=== PATIENT | female | born 1955 | race Caucasian/White ===

== ENCOUNTER 2016-09-30 23:47 | Inpatient (IN) | payer MEDICARE, OTHER ==
[~2016-09-30] VITALS: Ht 160 cm; Wt 79.2 kg
[2016-10-01] VITALS (21 sets, daily range): BP systolic 107–145; BP diastolic 67–71; PULSE 85–112; RESP 20–22; TEMP 98; Ht 160 cm; Wt 79.2 kg
[2016-10-01] MEDS ORDERED: ALBUTEROL 0.5% (NEB) 2.5 MG/0.5 ML AMP INH STA (00:04)
[2016-10-01] MEDS ORDERED: IPRATROPIUM (NEB) 0.5 MG/2.5 ML AMP INH STA (00:04)
[2016-10-01] MEDS ORDERED: DEXAMETHASONE 10 MG/ML 1 ML INJ IV STA (00:04)
[2016-10-01 00:45] LABS: AADO2 Arterial 157.6 mmHg (7.0-24.0); Allen Test ACCEPTAB; Arterial Base Excess 2.7 mmol/L (-3.0-3); Arterial COHb 0.8 % (0.0-3.0); Arterial Fraction of Oxyhgb 95.8 % (93.0-99.0); Arterial HCO3 32.9 mmol/L (22.0-26.0); Arterial MetHb 0.4 % (0.0-1.5); MODE MASK - SIMPLE
[2016-10-01 00:52] LABS: BASOPHILS % 0.3 % (0.0-2.0); EOSINOPHILS % 0.2 % (0.0-7.0); HEMATOCRIT 41.3 % (37.0-47.0); HEMOGLOBIN 13.5 g/dl (12.0-16.0); LYMPHOCYTES % 11.6 % (15.0-51.0); MEAN CORPUSCULAR HEMOGLOBIN 28.6 pg (29.0-33.0); MEAN CORPUSCULAR HGB CONC 32.8 g/dl (32.0-37.0); MEAN CORPUSCULAR VOLUME 87.2 fl (82.0-101.0); MEAN PLATELET VOLUME 7.2 fl (7.4-10.4); MONOCYTE # 0.7 10^3/ul (0.3-0.9); MONOCYTES % 8.2 % (0.0-11.0); NEUTROPHILS % 79.7 % (39.0-77.0); PLATELET COUNT 387 10^3/UL (140-440); RED BLOOD COUNT 4.73 10^6/ul (4.20-5.40); RED CELL DISTRIBUTION WIDTH 15.9 % (11.5-14.5); UNCORRECTED WBC 8.8 10^3/ul (4.8-10.8); WHITE BLOOD COUNT 8.8 10^3/ul (4.8-10.8)
--- NOTE | 2016-10-01 00:52 | RADRPT ---
PROCEDURE: XR Chest. CLINICAL INDICATION: Possible sepsis. TECHNIQUE: Single frontal view of the chest was obtained COMPARISON: None FINDINGS: Cardiomegaly with pulmonary valve ingestion of bilateral patchy air space disease, left greater than right. In setting of sepsis findings may represent left lung base pneumonia. There is no pleural effusion or pneumothorax. IMPRESSION: Left lung base pneumonia with mild superimposed failure. RPTAT: [facility] Physician Kvng Date Time Electronically viewed and signed by Neli Santiago Physician on 10/01/2016 00:51 RS/
[2016-10-01 00:53] LABS: CONDITION 1; LH ANALYZER COMMENTS 1
[2016-10-01 00:57] LABS: ALBUMIN 3.8 g/dl (3.3-4.9); CHLORIDE 76 mmol/L (97-110)
[2016-10-01 00:58] LABS: PARTIAL THROMBOPLASTIN TIME 24.8 Sec (25.0-35.0); POTASSIUM 3.9 mmol/L (3.5-5.1); SODIUM 121 mmol/L (135-144)
[2016-10-01 01:00] LABS: ALBUMIN/GLOBULIN RATIO 1.35; ALKALINE PHOSPHATASE 178 IU/L (42-121); ANION GAP 12 (8-16); ASPARTATE AMINO TRANSFERASE 24 IU/L (15-46); BILIRUBIN,INDIRECT 0.3 mg/dl (0-1.1); BILIRUBIN,TOTAL 0.3 mg/dl (0.2-1.3); CARBON DIOXIDE 37 mmol/L (21-31); CREATININE 0.42 mg/dl (0.44-1.00); TOTAL PROTEIN 6.6 g/dl (6.1-8.1)
[2016-10-01 01:01] LABS: ALANINE AMINOTRANSFERASE 28 IU/L (13-69); BLOOD UREA NITROGEN 13 mg/dl (7-20); CALCIUM 8.7 mg/dl (8.4-10.2); GLUCOSE 111 mg/dl (70-220)
[2016-10-01 01:06] LABS: INR 0.92; PROTIME 12.4 Sec (12.2-14.2)
[2016-10-01 01:22] LABS: TROPONIN-I < 0.012 ng/ml (0.00-0.12)
[2016-10-01 01:32] LABS: ADD UMIC NO; URINE BILIRUBIN (Dip) NEGATIVE (NEGATIVE); URINE BLOOD (Dip) NEGATIVE (NEGATIVE); URINE COLOR LT. YELLOW (YELLOW); URINE GLUCOSE (Dip) NEGATIVE (NEGATIVE); URINE KETONES (Dip) NEGATIVE (NEGATIVE); URINE LEUKOCYTE ESTERASE (Dip) NEGATIVE (NEGATIVE); URINE NITRITE (Dip) NEGATIVE (NEGATIVE); URINE TOTAL PROTEIN (Dip) NEGATIVE (NEGATIVE); URINE UROBILINOGEN (Dip) 0.2 E.U./dL (0.1-1.0)
--- NOTE | 2016-10-01 02:15 | ERA ---
ER Documentation Chief Complaint Date/Time DATE: 10/01/16 TIME: 02:14 Chief Complaint FLU LIKE S/S X 3 DAYS; FROM SNF; RA O2 AT TRIAGE 56 HPI Chest pain. No other current complaints. This is a very pleasant 61-year-old female comes in with complaints of shortness of breath. Lives in assisted living. Patient has history of COPD. Denies any nausea vomiting fevers chills. Denies any chest pain. ROS All systems reviewed and are negative except as per history of present illness. PMhx/Soc History of Surgery: Yes (appendectomy) Anesthesia Reaction: No Hx Neurological Disorder: Yes (mentally challenged?) Hx Respiratory Disorders: No Hx Cardiac Disorders: No Hx Miscellaneous Medical Probl: No Hx Alcohol Use: No Hx Substance Use: No Hx Tobacco Use: Yes Smoking Status: Former smoker Physical Exam Vitals Vital Signs Date Time Temp Pulse Resp B/P Pulse Ox O2 Delivery O2 Flow Rate FiO2 10/01/16 01:29 98.1 92 24 107/65 94 Mask 10.0 10/01/16 01:12 92 10.0 10/01/16 01:05 91 15.0 50 10/01/16 00:29 Nasal Cannula 5 10/01/16 00:24 92 8.0 10/01/16 00:21 96 22 93 Aerosol 8.0 Aerosol Mask 10/01/16 00:20 74 4.0 10/01/16 00:06 Nasal Cannula 4.0 10/01/16 00:01 98.0 104 24 113/67 54 Physical Exam Const: [] Head: Atraumatic Eyes: Normal Conjunctiva ENT: Normal External Ears, Nose and Mouth. Neck: Full range of motion..~ No meningismus. Resp: Clear to auscultation bilaterally Cardio: Regular rate and rhythm, no murmurs Abd: Soft, non tender, non distended. Normal bowel sounds Skin: No petechiae or rashes Back: No midline or flank tenderness Ext: No cyanosis, or edema Neur: Awake and alert Psych: Normal Mood and Affect Result Diagram: 10/01/16 0024 10/01/16 0024 Results 24 hrs Laboratory Tests Test 10/01/16 00:04 10/01/16 00:24 10/01/16 01:00 Arterial Blood HCO3 32.9mmol/L Arterial Blood Base Excess 2.7mmol/L Arterial Blood Oxygen Saturation 97.0mmHG Chaitanya Test ACCEPTAB Arterial Blood Gas Puncture Site Right Radial Arterial Blood Carboxyhemoglobin 0.8% Arterial Blood Date Drawn 10/01/2016 12:40:37 AM Arterial Blood Methemoglobin 0.4% Arterial Blood pCO2 (Temp correct) 80.1mmhg Arterial Blood pH (Temp corrected) 7.231 Arterial Blood pO2 (Temp corrected) 108.8mmHG Blood Gas A-a O2 Differential 157.6mmHg Blood Gas Critical Value Read Back Zuri ANTOINE Blood Gas Modality MASK - SIMPLE Blood Gas Notified Time 10/01/2016 12:45:20 AM Blood Gas Notified Whom BR Blood Gas Specimen Source Blood arterial Blood Gas Temperature 37.0C FiO2 50.0% Oxyhemoglobin Percent 95.8% Total Hemoglobin 14.0g/dl Activated Partial Thromboplast Time 24.8Sec Alanine Aminotransferase (ALT/SGPT) 28IU/L Albumin 3.8g/dl Albumin/Globulin Ratio 1.35 Alkaline Phosphatase 178IU/L Anion Gap 12 Aspartate Amino Transf (AST/SGOT) 24IU/L Basophils # 0.010^3/ul Basophils % 0.3% Blood Morphology Comment Blood Urea Nitrogen 13mg/dl Calcium Level 8.7mg/dl Carbon Dioxide Level 37mmol/L Chloride Level 76mmol/L Creatinine 0.42mg/dl Direct Bilirubin 0.00mg/dl Eosinophils # 0.010^3/ul Eosinophils % 0.2% Globulin 2.80g/dl Glucose Level 111mg/dl Hematocrit 41.3% Hemoglobin 13.5g/dl INR International Normalized Ratio 0.92 Indirect Bilirubin 0.3mg/dl Lactic Acid Level 1.3mmol/L Lymphocytes # 1.010^3/ul Lymphocytes % 11.6% Mean Corpuscular Hemoglobin 28.6pg Mean Corpuscular Hemoglobin Concent 32.8g/dl Mean Corpuscular Volume 87.2fl Mean Platelet Volume 7.2fl Monocytes # 0.710^3/ul Monocytes % 8.2% Neutrophils # 7.010^3/ul Neutrophils % 79.7% Nucleated Red Blood Cells # 0.010^3/ul Nucleated Red Blood Cells % 0.0/100WBC Platelet Count 66740^3/UL Potassium Level 3.9mmol/L Prothrombin Time 12.4Sec Prothrombin Time Ratio 1.0 Red Blood Count 4.7310^6/ul Red Cell Distribution Width 15.9% Sodium Level 121mmol/L Total Bilirubin 0.3mg/dl Total Protein 6.6g/dl Troponin I < 0.012ng/ml White Blood Count 8.810^3/ul Urine Bilirubin NEGATIVE Urine Clarity CLEAR Urine Color LT. YELLOW Urine Glucose NEGATIVE% Urine Hemoglobin NEGATIVE Urine Ketones NEGATIVE Urine Leukocyte Esterase NEGATIVE Urine Nitrite NEGATIVE Urine Specific [place] 1.025 Urine Total Protein NEGATIVE Urine Urobilinogen 0.2 E.U./dL Urine pH 6.0 Current Medications Medications (Trade) Dose Ordered Sig/León Route PRN Reason Start Time Stop Time Status Last Admin Dose Admin Albuterol (Proventil 0.5% (Neb)) 15 mg ONCE STAT INH 10/01/16 00:04 10/01/16 00:07 DC 10/01/16 00:17 Ipratropium [place] (Atrovent 0.02% (Neb)) 1 mg ONCE STAT INH 10/01/16 00:04 10/01/16 00:07 DC 10/01/16 00:17 Dexamethasone (Decadron) 10 mg ONCE STAT IV 10/01/16 00:04 10/01/16 00:07 DC 10/01/16 00:34 Procedures/MDM EKG: Rate/Rhythm: Normal Sinus Rhythm QRS, ST, T-waves: No changes consistent w/ acute ischemia Impression: No evidence of ischemia or arrhythmia Chest X-ray 1V Interpreted by me: Soft Tissue: No acute abnormalities Bones: No acute abnormalities Mediastinum/Cardiac Silhouette/Lungs: No acute abnormalities Patient's respiratory symptoms have not responded to normal outpatient therapy and will require inpatient workup, monitoring, and treatment. Accepting Care Team: Current data and ongoing care discussed. Time: 1 AM Primary Provider: Hospitalist Consulting: [XOXOXO] Outstanding Data: none Critical Care: Time: 45 minutes Treatments/Evaluations: Close monitoring and treatment of unstable vital signs, cardiorespiratory, and neurologic status, while maintaining tight balance of fluid, respiratory, and cardiac interventions. Departure Diagnosis: Primary Impression: Shortness of breath Additional Impression: COPD (chronic obstructive pulmonary disease) Condition: Critical SYED ANTOINE Oct 01, 2016 02:15
[2016-10-01] MEDS ORDERED: ACETAMINOPHEN 325 MG TAB PO PRN (03:30)
[2016-10-01] MEDS ORDERED: SOD CHLORIDE 0.9% 1,000 ML IV SCH (03:30)
[2016-10-01] MEDS ORDERED: ONDANSETRON 4 MG INJ IV PRN (03:30)
[2016-10-01] MEDS ORDERED: LEVOFLOXACIN 500MG/D5W (PMX) 100 ML IVPB SCH ×2 (03:30→04:00)
[2016-10-01] MEDS ORDERED: LEVALBUTEROL (NEB) 0.63 MG/3 ML AMP ONE (03:37)
[2016-10-01] MEDS: IPRATROPIUM (NEB) 0.5 MG/2.5 ML AMP HHN SCH ×6 (04:00→19:40)
[2016-10-01] MEDS: LEVALBUTEROL (NEB) 0.63 MG/3 ML AMP HHN SCH ×6 (04:00→19:39)
[2016-10-01] MEDS ORDERED: METO-448 PO (04:24)
[2016-10-01] MEDS ORDERED: AMLO-218 PO (04:24)
[2016-10-01] MEDS ORDERED: HAL120L PO (04:37)
[2016-10-01] MEDS ORDERED: ERGO500014 PO (04:37)
[2016-10-01] MEDS ORDERED: DOCU-159 PO (04:37)
[2016-10-01] MEDS ORDERED: ADV25050 INHALATION (04:37)
[2016-10-01] MEDS ORDERED: ALBU8.5H3 INH (04:37)
[2016-10-01] MEDS ORDERED: RES15 PO (04:37)
[2016-10-01] MEDS ORDERED: HALO20TA7 PO (04:37)
[2016-10-01] MEDS ORDERED: CLON0.5T4 PO (04:37)
[2016-10-01] MEDS ORDERED: LUBI24CA7 PO (04:37)
--- NOTE | 2016-10-01 08:06 | HP ---
DATE OF ADMISSION: 10/01/2016 TIME SEEN: 4 a.m. CHIEF COMPLAINT: Shortness of breath and hypoxia. HISTORY OF PRESENT ILLNESS: The patient is a 61-year-old mentally challenged female with a history of hypertension and COPD who was sent from an assisted living facility for shortness of breath and h ypoxia. The patient denies chest pain, fever, chills, nausea, vomiting. When he presented to the ER, he was found to be severely hypoxic with oxygen saturation of 54%. His blood pressure was 113/67, heart rate 104, respiratory rate 24, and temperature is 98. Basic labs show a sodium of 121, chloride 76, bicarbonate 37, alkaline phosphatase 178. Otherwise, CBC and CMP are within normal limits. Chest x-ray shows cardiomegaly with pulmonary vascular congestion. Also, bilateral patchy airspace disease, left greater than right, most likely representing left lung base pneumonia. The patient wa s given 10 mg of IV dexamethasone and breathing treatments with albuterol and with Atrovent. REVIEW OF SYSTEMS: A 12-point review of systems was performed, negative except as mentioned in the HPI. PAST MEDICAL HISTORY: As per HPI. PAST SURGICAL HISTORY: Appendectomy. SOCIAL HISTORY: No history of tobacco, alcohol, or illicit drug use. ALLERGIES: NO KNOWN DRUG ALLERGIES. HOME MEDICATIONS: 1. Albuterol. 2. Norvasc. 3. Lopressor. 4. Clonazepam. 5. Haldol. 6. Temazepam. 7. Advair. 8. Colace. 9. . 10. Vitamin D2. PHYSICAL EXAMINATION: VITAL SIGNS: Blood pressure 145/68, heart rate 88, respiratory rate 22, temperature 98.6, oxygen sa turation 94% on 65% FIO2. GENERAL: The patient in some respiratory distress, not able to speak in full sentences. HEENT: No obvious head deformity. His pupils are reactive to light. CARDIOVASCULAR: Tachycardic with regular rhythm. LUNGS: Diminished breath sounds at the bases, left worse than right. ABDOMEN: Soft, nontender, nondistended. Positive bowel sounds. EXTREMITIES: No edema. NEUROLOGIC: No focal deficits. LABORATORY: Pertinent positives results as mentioned in the HPI. IMPRESSION: 1. Chronic obstructive pulmonary disease exacerbation with underlying pneumonia. 2. Pneumonia. 3. Shortness of breath and hypoxia secondary to #1 and #2. 4. Hyponatremia and hypochloremia. 5. Hypertension. 6. Probable congestive heart failure, given chest x-ray finding of pulmonary vascular congestion. PLAN: Obtain an ABG. He will be treated with oxygen, bronchodilators, steroids, and antibiotics. Will initiate positive pressure ventilation as needed. We will place a pulmonary consult given the severe hypoxia on initial presentation. Will also obtain a 2-D echo. We will correct his electroly cande, namely his sodium in this case. He will be placed on antihypertensive with adjustment as otilia tena. We will also continue his home medication including his clonazepam and Haldol and will adjust hi s home medication as needed. Further workup and management per clinical course. Dictated By: SYED RODRIGUEZ/HEIDI Conf#: [id number] DID#: [id number]
[2016-10-01 08:24] LABS: HEMATOCRIT 40.5 % (37.0-47.0); HEMOGLOBIN 13.2 g/dl (12.0-16.0); LYMPHOCYTES # 0.4 10^3/ul (0.8-2.9); LYMPHOCYTES % 4.5 % (15.0-51.0); MEAN CORPUSCULAR HEMOGLOBIN 28.8 pg (29.0-33.0); MEAN CORPUSCULAR HGB CONC 32.7 g/dl (32.0-37.0); MEAN CORPUSCULAR VOLUME 88.3 fl (82.0-101.0); MEAN PLATELET VOLUME 7.3 fl (7.4-10.4); MONOCYTE # 0.1 10^3/ul (0.3-0.9); MONOCYTES % 0.9 % (0.0-11.0); NEUTROPHIL # 7.7 10^3/ul (1.6-7.5); NEUTROPHILS % 94.6 % (39.0-77.0); PLATELET COUNT 326 10^3/UL (140-440); RED BLOOD COUNT 4.58 10^6/ul (4.20-5.40); RED CELL DISTRIBUTION WIDTH 15.7 % (11.5-14.5); UNCORRECTED WBC 8.2 10^3/ul (4.8-10.8); WHITE BLOOD COUNT 8.2 10^3/ul (4.8-10.8)
[2016-10-01 08:45] LABS: CONDITION 1; LH ANALYZER COMMENTS 1
[2016-10-01 09:16] LABS: ALBUMIN 3.7 g/dl (3.3-4.9); POTASSIUM 4.3 mmol/L (3.5-5.1)
[2016-10-01 09:18] LABS: BILIRUBIN,INDIRECT 0.2 mg/dl (0-1.1); BILIRUBIN,TOTAL 0.2 mg/dl (0.2-1.3); CREATININE 0.43 mg/dl (0.44-1.00)
[2016-10-01 09:19] LABS: ALBUMIN/GLOBULIN RATIO 1.37; CALCIUM 8.4 mg/dl (8.4-10.2); TOTAL PROTEIN 6.4 g/dl (6.1-8.1)
[2016-10-01] MEDS: METHYLPREDNISOLONE 125 MG INJ IV SCH ×2 (10:45→21:43)
[2016-10-01] MEDS ORDERED: clonAZEPAM 0.5 MG TAB PO PRN (14:00)
[2016-10-01] MEDS ORDERED: FUROSEMIDE 40 MG INJ IV ONE (14:00)
[2016-10-01] MEDS ORDERED: HALOPERIDOL PO PRN (14:00)
[2016-10-01] MEDS ORDERED: ERGOCALCIFEROL 50,000 UNIT CAP PO SCH (14:00)
[2016-10-01 14:09] LABS: AADO2 Arterial 286.6 mmHg (7.0-24.0); Allen Test ACCEPTAB; Arterial Base Excess 7.1 mmol/L (-3.0-3); Arterial COHb 0.2 % (0.0-3.0); Arterial Fraction of Oxyhgb 95.6 % (93.0-99.0); Arterial HCO3 36.8 mmol/L (22.0-26.0); Arterial MetHb 0.2 % (0.0-1.5); Arterial Total Hemglobin 13.9 g/dl (12.0-18.0); Blood Gas IEPAP 15/5; MODE MASK - BIPAP
--- NOTE | 2016-10-01 14:27 | PN ---
Date/Time of Note Date/Time of Note DATE: 10/01/16 TIME: 14:22 Assessment/Plan VTE Prophylaxis VTE Prophylaxis Intervention: SCD's Lines/Catheters IV Catheter Type (from Nrs): Peripheral IV Urinary Cath still in place: No Assessment/Plan Chief Complaint/Hosp Course IMPRESSION: 1. Chronic obstructive pulmonary disease exacerbation with underlying pneumonia. Crocheter has been consulted, continue breathing treatment, Solu-Medrol, and BiPAP Continue Rocephin 2. Pneumonia. On Rocephin 3. Shortness of breath and hypoxia secondary to #1 and #2. As above 4. Hyponatremia and hypochloremia. Continue IV fluids, nephrology has been consulted May be medication related 5. Hypertension. Better controlled, continue medical management 6. Probable congestive heart failure, given chest x-ray finding of pulmonary vascular congestion. Continue Lasix, follow-up ABG and chest x-ray in a.m. Will also obtain a 2-D echo 7. Altered mental status Likely medication related, due to benzodiazepine versus hypoxemia Patient is arousable continue to monitor Further workup and management per clinical course. Problems: Subjective 24 Hr Interval Summary Free Text/Dictation Patient is found to be on BiPAP, not using accessory muscle Patient continues to be altered and obtunded Exam/Review of Systems Vital Signs Vitals Vital Signs Date Time Temp Pulse Resp B/P Pulse Ox O2 Delivery O2 Flow Rate FiO2 10/01/16 12:28 94 10/01/16 11:37 95 65 10/01/16 11:32 98.9 20 111/69 10/01/16 09:20 15.0 10/01/16 02:58 Mask Intake and Output 09/30/16 09/30/16 10/01/16 15:00 23:00 07:00 Intake Total 250 ml Balance 250 ml Exam General: The patient is arousable with pain stimuli, on BiPAP HEENT: Atraumatic, normocephalic. The pupils are equal Neck: Supple , positive JVD Chest: Normal expansion of the thorax during inspiration Lungs: Decreased breath sounds bilateral lower lung field, positive crackles Heart: Normal S1-S2, Regular rhythm and rate. Abdomen: Soft , nontender, nondistended , bowel sounds are present. Extremities: Normal to inspection, +1 edema no cyanosis Neurologic: The patient is arousable with pain stimuli Results Result Diagram: 10/01/16 0553 10/01/16 0553 Results 24 hrs Laboratory Tests Test 10/01/16 00:04 10/01/16 00:24 10/01/16 01:00 10/01/16 02:30 Arterial Blood HCO3 32.9 H Arterial Blood Base Excess 2.7 Arterial Blood Oxygen Saturation 97.0 Chaitanya Test ACCEPTAB Arterial Blood Gas Puncture Site Right Radial Arterial Blood Carboxyhemoglobin 0.8 Arterial Blood Date Drawn 10/01/2016 12:40:37 AM Arterial Blood Methemoglobin 0.4 Arterial Blood pCO2 (Temp correct) 80.1 *H Arterial Blood pH (Temp corrected) 7.231 *L Arterial Blood pO2 (Temp corrected) 108.8 H Blood Gas A-a O2 Differential 157.6 H Blood Gas Critical Value Read Back Zuri ANTOINE Blood Gas Modality MASK - SIMPLE Blood Gas Notified Time 10/01/2016 12:45:20 AM Blood Gas Notified Whom BR Blood Gas Specimen Source Blood arterial Blood Gas Temperature 37.0 FiO2 50.0 Oxyhemoglobin Percent 95.8 Total Hemoglobin 14.0 Activated Partial Thromboplast Time 24.8 L Alanine Aminotransferase (ALT/SGPT) 28 Albumin 3.8 Albumin/Globulin Ratio 1.35 Alkaline Phosphatase 178 H Anion Gap 12 Aspartate Amino Transf (AST/SGOT) 24 Basophils # 0.0 Basophils % 0.3 Blood Morphology Comment Blood Urea Nitrogen 13 Calcium Level 8.7 Carbon Dioxide Level 37 H Chloride Level 76 L Creatinine 0.42 L Direct Bilirubin 0.00 Eosinophils # 0.0 Eosinophils % 0.2 Globulin 2.80 Glucose Level 111 Hematocrit 41.3 Hemoglobin 13.5 INR International Normalized Ratio 0.92 Indirect Bilirubin 0.3 Lactic Acid Level 1.3 0.7 Lymphocytes # 1.0 Lymphocytes % 11.6 L Mean Corpuscular Hemoglobin 28.6 L Mean Corpuscular Hemoglobin Concent 32.8 Mean Corpuscular Volume 87.2 Mean Platelet Volume 7.2 L Monocytes # 0.7 Monocytes % 8.2 Neutrophils # 7.0 Neutrophils % 79.7 H Nucleated Red Blood Cells # 0.0 Nucleated Red Blood Cells % 0.0 Platelet Count 387 Potassium Level 3.9 Prothrombin Time 12.4 Prothrombin Time Ratio 1.0 Red Blood Count 4.73 Red Cell Distribution Width 15.9 H Sodium Level 121 L Total Bilirubin 0.3 Total Protein 6.6 Troponin I < 0.012 White Blood Count 8.8 Urine Bilirubin NEGATIVE Urine Clarity CLEAR Urine Color LT. YELLOW Urine Glucose NEGATIVE Urine Hemoglobin NEGATIVE Urine Ketones NEGATIVE Urine Leukocyte Esterase NEGATIVE Urine Nitrite NEGATIVE Urine Specific [place] 1.025 Urine Total Protein NEGATIVE Urine Urobilinogen 0.2 E.U./dL Urine pH 6.0 Test 10/01/16 05:53 10/01/16 13:58 Alanine Aminotransferase (ALT/SGPT) 28 Albumin 3.7 Albumin/Globulin Ratio 1.37 Alkaline Phosphatase 156 H Anion Gap 13 Aspartate Amino Transf (AST/SGOT) 30 Basophils # 0.0 Basophils % 0.0 Blood Morphology Comment Blood Urea Nitrogen 13 Calcium Level 8.4 Carbon Dioxide Level 36 H Chloride Level 78 L Creatinine 0.43 L Differential Comment AUTO w/SCAN Direct Bilirubin 0.00 Eosinophils # 0.0 Eosinophils % 0.0 Globulin 2.70 Glucose Level 107 Hematocrit 40.5 Hemoglobin 13.2 Indirect Bilirubin 0.2 Lactic Acid Level 1.7 Lymphocytes # 0.4 L Lymphocytes % 4.5 L Mean Corpuscular Hemoglobin 28.8 L Mean Corpuscular Hemoglobin Concent 32.7 Mean Corpuscular Volume 88.3 Mean Platelet Volume 7.3 L Monocytes # 0.1 L Monocytes % 0.9 Neutrophils # 7.7 H Neutrophils % 94.6 H Nucleated Red Blood Cells # 0.0 Nucleated Red Blood Cells % 0.0 Platelet Count 326 Potassium Level 4.3 Red Blood Count 4.58 Red Cell Distribution Width 15.7 H Sodium Level 123 L Total Bilirubin 0.2 Total Protein 6.4 White Blood Count 8.2 Arterial Blood HCO3 36.8 H Arterial Blood Base Excess 7.1 H Arterial Blood Oxygen Saturation 96.0 Chaitanya Test ACCEPTAB Arterial Blood Gas Puncture Site Left Radial Arterial Blood Carboxyhemoglobin 0.2 Arterial Blood Date Drawn 10/01/2016 1:55:47 PM Arterial Blood Methemoglobin 0.2 Arterial Blood pCO2 (Temp correct) 79.2 H Arterial Blood pH (Temp corrected) 7.285 *L Arterial Blood pO2 (Temp corrected) 90.7 Blood Gas A-a O2 Differential 286.6 H Blood Gas Actual Respiration Rate 18 Blood Gas Critical Value Read Back Eran NIEVES RN Blood Gas IPAP/EPAP Ratio 15/5 Blood Gas Modality MASK - BIPAP Blood Gas Notified Time 10/01/2016 2:09:06 PM Blood Gas Notified Whom JLD Blood Gas Respiration Rate 18.0 Blood Gas Specimen Source Blood arterial Blood Gas Temperature 37.0 FiO2 65.0 Oxyhemoglobin Percent 95.6 Total Hemoglobin 13.9 Medications Medications Current Medications Ondansetron HCl (Zofran Inj) 4 mg Q6H PRN IV NAUSEA AND/OR VOMITING; Start at 03:30 Acetaminophen (Tylenol Tab) 650 mg Q6H PRN PO PAIN AND OR ELEVATED TEMP; Start 10/01/16 at 03:30 Methylprednisolone Sodium Succinate 80 mg 80 mg Q12 IV Last administered on 10:45; Admin Dose 80 MG; Start 10/01/16 at 09:00 Sodium Chloride 1,000 ml @ 100 mls/hr Q10H IV Last administered on 10/01/16 03:46; Admin Dose 100 MLS/HR; Start 10/01/16 at 03:30 Levofloxacin/ Dextrose (Levaquin 500mg/ D5W 100 ml (Pmx)) 100 ml @ 100 mls/hr Q24H IVPB Last administered on 10/01/16 04:14; Admin Dose 100 MLS/HR; Start at 04:00 Albuterol (Ventolin Hfa) 2 puff Q12 INH ; Start 10/01/16 at 21:00 Amlodipine Besylate (Norvasc) 10 mg DAILY PO ; Start 10/02/16 at 09:00 Clonazepam (Klonopin) 0.5 mg BID PRN PO AGITATION/ANXIETY; Start 10/01/16 at 14 :00 Docusate Sodium (Colace) 100 mg DAILY PO ; Start 10/02/16 at 09:00 Ergocalciferol (Drisdol) 50,000 unit Q7D PO ; Start 10/01/16 at 14:00 Lubiprostone (Amitiza) 24 mcg BID PO ; Start 10/01/16 at 21:00 Metoprolol Tartrate (Lopressor) 25 mg BID PO ; Start 10/01/16 at 21:00 Salmeterol Xinafoate/ Fluticasone (Advair 250/50 Diskus) 1 inh BID INH ; Start 10/01/16 at 21:00 Haloperidol (Haldol) 5 mg BID PO ; Start 10/01/16 at 21:00 OLESYA OBANDO MD Oct 01, 2016 14:27
--- NOTE | 2016-10-01 14:50 | CONS ---
Date/Time of Note Date/Time of Note DATE: 10/01/16 TIME: 14:40 Assessment/Plan Assessment/Plan Additional Assessment/Plan 61 yo Female with 1) Hyponatremia 2) Respiratory Failure 3) CHF 4) COPD 5) Metabolic Alkalosis 6) Hx of HTN 7) Possible PNA 8) Abnormal UA, Likely UTI with possible Urinary Retention Hyponatremia likely multifactorial in the setting of Chronic Lung Disease, CHF and Medication Rx. At this time will DC IVFs Check Urine Na, Urine Cr, Urine Osm Serum TSH, Cortisol levels Request placement of Keller catheter, Strict Is and Os Due to impending respiratory failure/CHF, need for BIPAP and after discussion of care with Pultio KAUR, Benefit of Diuretic Rx outweighs Risk of diuretic Rx with respect to Hyponatremia Repeat Na level ordered for this evening. Will cont to closely follow levels. Appreciate 2D Echo and BNP for further evaluation of Diastolic Heart Failure. Thank you for the opportunity to participate in the care of Ms Kulkarni Please do not hesitate to contact me if you have any questions or concerns. Consultation Date/Type/Reason Admit Date/Time Oct 01, 2016 at 01:02 Date of Consultation: Oct 01, 2016 Type of Consultation: Nephrology Reason for Consultation Hyponatremia Referring Provider: OLESYA OBANDO MD Hx of Present Illness 61-year-old female with history of hypertension, chronic obstructive pulmonary disease presenting with increasing shortness of breath, orthopnea, PND, found on admission to have hypercapneic respiratory failure and now is on BIPAP. Incidentally found to have Hyponatremia serum Na 121 and now improved to 123. Nephrology consulted for Hyponatremia. Patient has not voided yet. Poor Historian at this time due to clinical condition Unable to obtain Constitutional: requiring O2 Past Medical History Medical History: hypertension, other (COPD) Past Surgical History Past Surgical Hx: other Family History Significant Family History: no pertinent family hx Social History Alcohol Use: none Smoking Status: Former smoker Drug Use: none Exam/Review of Systems Vital Signs Vitals Vital Signs Date Time Temp Pulse Resp B/P Pulse Ox O2 Delivery O2 Flow Rate FiO2 10/01/16 12:28 94 10/01/16 11:37 95 65 10/01/16 11:32 98.9 20 111/69 10/01/16 09:20 15.0 10/01/16 02:58 Mask Intake and Output 09/30/16 09/30/1610/01/17 15:00 23:00 07:00 Intake Total 250 ml Balance 250 ml Exam Constitutional: alert, distress ENMT: mucosa pink and moist Neck: No jvd Respiratory: crackles/rales, diminished breath sounds, labored breathing, other (BIPAP) Cardiovascular: No edema Gastrointestinal: non-tender, soft Extremities: No pitting pedal edema Neurological: lethargic, No confused Skin: nl turgor, No diaphoresis Results Result Diagram: 10/01/16 0553 10/01/16 0553 Results 24 hrs Laboratory Tests Test 10/01/16 00:04 10/01/16 00:24 10/01/16 01:00 10/01/16 02:30 Arterial Blood HCO3 32.9 H Arterial Blood Base Excess 2.7 Arterial Blood Oxygen Saturation 97.0 Chaitanya Test ACCEPTAB Arterial Blood Gas Puncture Site Right Radial Arterial Blood Carboxyhemoglobin 0.8 Arterial Blood Date Drawn 10/01/2016 12:40:37 AM Arterial Blood Methemoglobin 0.4 Arterial Blood pCO2 (Temp correct) 80.1 *H Arterial Blood pH (Temp corrected) 7.231 *L Arterial Blood pO2 (Temp corrected) 108.8 H Blood Gas A-a O2 Differential 157.6 H Blood Gas Critical Value Read Back Zuri ANTOINE Blood Gas Modality MASK - SIMPLE Blood Gas Notified Time 10/01/2016 12:45:20 AM Blood Gas Notified Whom BR Blood Gas Specimen Source Blood arterial Blood Gas Temperature 37.0 FiO2 50.0 Oxyhemoglobin Percent 95.8 Total Hemoglobin 14.0 Activated Partial Thromboplast Time 24.8 L Alanine Aminotransferase (ALT/SGPT) 28 Albumin 3.8 Albumin/Globulin Ratio 1.35 Alkaline Phosphatase 178 H Anion Gap 12 Aspartate Amino Transf (AST/SGOT) 24 Basophils # 0.0 Basophils % 0.3 Blood Morphology Comment Blood Urea Nitrogen 13 Calcium Level 8.7 Carbon Dioxide Level 37 H Chloride Level 76 L Creatinine 0.42 L Direct Bilirubin 0.00 Eosinophils # 0.0 Eosinophils % 0.2 Globulin 2.80 Glucose Level 111 Hematocrit 41.3 Hemoglobin 13.5 INR International Normalized Ratio 0.92 Indirect Bilirubin 0.3 Lactic Acid Level 1.3 0.7 Lymphocytes # 1.0 Lymphocytes % 11.6 L Mean Corpuscular Hemoglobin 28.6 L Mean Corpuscular Hemoglobin Concent 32.8 Mean Corpuscular Volume 87.2 Mean Platelet Volume 7.2 L Monocytes # 0.7 Monocytes % 8.2 Neutrophils # 7.0 Neutrophils % 79.7 H Nucleated Red Blood Cells # 0.0 Nucleated Red Blood Cells % 0.0 Platelet Count 387 Potassium Level 3.9 Prothrombin Time 12.4 Prothrombin Time Ratio 1.0 Red Blood Count 4.73 Red Cell Distribution Width 15.9 H Sodium Level 121 L Total Bilirubin 0.3 Total Protein 6.6 Troponin I < 0.012 White Blood Count 8.8 Urine Bilirubin NEGATIVE Urine Clarity CLEAR Urine Color LT. YELLOW Urine Glucose NEGATIVE Urine Hemoglobin NEGATIVE Urine Ketones NEGATIVE Urine Leukocyte Esterase NEGATIVE Urine Nitrite NEGATIVE Urine Specific [place] 1.025 Urine Total Protein NEGATIVE Urine Urobilinogen 0.2 E.U./dL Urine pH 6.0 Test 10/01/16 05:53 10/01/16 13:58 Alanine Aminotransferase (ALT/SGPT) 28 Albumin 3.7 Albumin/Globulin Ratio 1.37 Alkaline Phosphatase 156 H Anion Gap 13 Aspartate Amino Transf (AST/SGOT) 30 Basophils # 0.0 Basophils % 0.0 Blood Morphology Comment Blood Urea Nitrogen 13 Calcium Level 8.4 Carbon Dioxide Level 36 H Chloride Level 78 L Creatinine 0.43 L Differential Comment AUTO w/SCAN Direct Bilirubin 0.00 Eosinophils # 0.0 Eosinophils % 0.0 Globulin 2.70 Glucose Level 107 Hematocrit 40.5 Hemoglobin 13.2 Indirect Bilirubin 0.2 Lactic Acid Level 1.7 Lymphocytes # 0.4 L Lymphocytes % 4.5 L Mean Corpuscular Hemoglobin 28.8 L Mean Corpuscular Hemoglobin Concent 32.7 Mean Corpuscular Volume 88.3 Mean Platelet Volume 7.3 L Monocytes # 0.1 L Monocytes % 0.9 Neutrophils # 7.7 H Neutrophils % 94.6 H Nucleated Red Blood Cells # 0.0 Nucleated Red Blood Cells % 0.0 Platelet Count 326 Potassium Level 4.3 Red Blood Count 4.58 Red Cell Distribution Width 15.7 H Sodium Level 123 L Total Bilirubin 0.2 Total Protein 6.4 White Blood Count 8.2 Arterial Blood HCO3 36.8 H Arterial Blood Base Excess 7.1 H Arterial Blood Oxygen Saturation 96.0 Chaitanya Test ACCEPTAB Arterial Blood Gas Puncture Site Left Radial Arterial Blood Carboxyhemoglobin 0.2 Arterial Blood Date Drawn 10/01/2016 1:55:47 PM Arterial Blood Methemoglobin 0.2 Arterial Blood pCO2 (Temp correct) 79.2 H Arterial Blood pH (Temp corrected) 7.285 *L Arterial Blood pO2 (Temp corrected) 90.7 Blood Gas A-a O2 Differential 286.6 H Blood Gas Actual Respiration Rate 18 Blood Gas Critical Value Read Back Eran NIEVES RN Blood Gas IPAP/EPAP Ratio 15/5 Blood Gas Modality MASK - BIPAP Blood Gas Notified Time 10/01/2016 2:09:06 PM Blood Gas Notified Whom JLD Blood Gas Respiration Rate 18.0 Blood Gas Specimen Source Blood arterial Blood Gas Temperature 37.0 FiO2 65.0 Oxyhemoglobin Percent 95.6 Total Hemoglobin 13.9 Medications Medications Current Medications Ondansetron HCl (Zofran Inj) 4 mg Q6H PRN IV NAUSEA AND/OR VOMITING; Start at 03:30 Acetaminophen (Tylenol Tab) 650 mg Q6H PRN PO PAIN AND OR ELEVATED TEMP; Start 10/01/16 at 03:30 Methylprednisolone Sodium Succinate 80 mg 80 mg Q12 IV Last administered on 10:45; Admin Dose 80 MG; Start 10/01/16 at 09:00 Sodium Chloride (NS) 1,000 ml @ 100 mls/hr Q10H IV Last administered on 03:46; Admin Dose 100 MLS/HR; Start 10/01/16 at 03:30 Albuterol (Ventolin Hfa) 2 puff Q12 INH ; Start 10/01/16 at 21:00 Amlodipine Besylate (Norvasc) 10 mg DAILY PO ; Start 10/02/16 at 09:00 Clonazepam (Klonopin) 0.5 mg BID PRN PO AGITATION/ANXIETY; Start 10/01/16 at 14 :00 Docusate Sodium (Colace) 100 mg DAILY PO ; Start 10/02/16 at 09:00 Ergocalciferol (Drisdol) 50,000 unit Q7D PO ; Start 10/01/16 at 14:00 Lubiprostone (Amitiza) 24 mcg BID PO ; Start 10/01/16 at 21:00 Metoprolol Tartrate (Lopressor) 25 mg BID PO ; Start 10/01/16 at 21:00 Salmeterol Xinafoate/ Fluticasone (Advair 250/50 Diskus) 1 inh BID INH ; Start 10/01/16 at 21:00 Haloperidol 5 mg 5 mg BID PO ; Start 10/01/16 at 21:00 Ceftriaxone Sodium (Rocephin) 50 ml @ 100 mls/hr Q24H IVPB ; Start 10/01/16 at 14:30 Procedures Procedures PROCEDURE: XR Chest. CLINICAL INDICATION: Possible sepsis. TECHNIQUE: Single frontal view of the chest was obtained COMPARISON: None FINDINGS: Cardiomegaly with pulmonary valve ingestion of bilateral patchy air space disease, left greater than right. In setting of sepsis findings may represent left lung base pneumonia. There is no pleural effusion or pneumothorax. IMPRESSION: Left lung base pneumonia with mild superimposed failure. RPTAT: [facility]U Physician Kvng Date Time Electronically viewed and signed by Physician Kvng on 10/01/2016 00:51 MAYRA JENSEN MD Oct 01, 2016 14:50
[2016-10-01] MEDS ORDERED: LEVALBUTEROL (NEB) 0.63 MG/3 ML AMP HHN PRN (15:30)
[2016-10-01] MEDS: CEFTRIAXONE 1 GM/50 ML (PMX) 50 ML IVPB SCH (17:34)
--- NOTE | 2016-10-01 17:37 | CONS ---
DATE OF ADMISSION: 10/01/2016 DATE OF CONSULTATION: REASON FOR CONSULTATION: Shortness of breath and hypercapnia. HISTORY OF PRESENT ILLNESS: This is a 61-year-old lady with multiple medical problems including chr onic hypercapnia, history of chronic obstructive pulmonary disease admitted with several-day history of increasing shortness of breath, orthopnea, PND, found on admission to have hypercapnia requiring initiation of noninvasive positive pressure ventilation. The patient now placed on BiPAP, remains awake, alert, responsive with still evidence of hypercapnia. PAST MEDICAL HISTORY: Developmental delay, COPD. MEDICATIONS: Per chart. ALLERGIES: NONE. SOCIAL HISTORY: Ex-smoker. No alcohol, no history of drug use. FAMILY HISTORY: Noncontributory. SYSTEMS REVIEW: A 12-point review of systems currently unable to perform. PHYSICAL EXAMINATION: GENERAL: Elderly-appearing lady, arousable on BiPAP. VITAL SIGNS: Currently afebrile. Pulse is 93, blood pressure 111/69, O2 saturation 96%, FIO2 of 65 %. NECK: Supple. No JVD or lymphadenopathy. CARDIAC: S1, S2. No added sounds or murmurs. CHEST: Diminished air entry bilaterally. ABDOMEN: Soft, nontender. No guarding or rebound. EXTREMITIES: No cyanosis, clubbing, edema. NEUROLOGIC: Grossly intact. No focal deficits. LABORATORY DATA: White count 8.2, hemoglobin 13.2, platelets of 326. BUN 43, creatinine 1.07. INR 0.92. ABG: pH 7.28, pCO2 of 79, pO2 of 90. IMPRESSION AND PLAN: 1. Acute on chronic hypercapnic respiratory failure, likely secondary to chronic obstructive pulmon darlyn disease exacerbation and congestive heart failure. 2. Developmental delay. 3. Likely underlying interstitial edema. 4. Questionable diastolic dysfunction. The patient should have: 1. Gentle diuresis if tolerated. 2. Renal recommendations, correction of hyponatremia. 3. Bronchodilators and steroid taper. 4. Continue noninvasive positive pressure ventilation. Dictated By: MARIELA JEFFREY MD SV/HEIDI Conf#: [id number] DID#: [id number] CC: SYED SIMENTAL MD;*End*
[2016-10-01 17:46] LABS: ADD UMIC YES; URINE BILIRUBIN (Dip) NEGATIVE (NEGATIVE); URINE BLOOD (Dip) NEGATIVE (NEGATIVE); URINE COLOR LT. YELLOW (YELLOW); URINE GLUCOSE (Dip) NEGATIVE (NEGATIVE); URINE KETONES (Dip) NEGATIVE (NEGATIVE); URINE LEUKOCYTE ESTERASE (Dip) 2+ (NEGATIVE); URINE NITRITE (Dip) NEGATIVE (NEGATIVE); URINE TOTAL PROTEIN (Dip) NEGATIVE (NEGATIVE); URINE UROBILINOGEN (Dip) 0.2 E.U./dL (0.1-1.0)
[2016-10-01 17:54] LABS: URINE RBCS 0-2 /HPF (0)
[2016-10-01 17:55] LABS: BACTERIA,URINE MODERATE
[2016-10-01] MEDS ORDERED: FUROSEMIDE 20 MG INJ IV SCH (18:00)
[2016-10-01 18:05] LABS: AADO2 Arterial 289.8 mmHg (7.0-24.0); Allen Test ACCEPTAB; Arterial Base Excess 9.1 mmol/L (-3.0-3); Arterial COHb 0 % (0.0-3.0); Arterial Fraction of Oxyhgb 97.1 % (93.0-99.0); Arterial HCO3 37.5 mmol/L (22.0-26.0); Arterial MetHb 0.2 % (0.0-1.5); Arterial Total Hemglobin 14.2 g/dl (12.0-18.0); Blood Gas IEPAP 18/8; Blood Gas PS 10; MODE BIPAP
[2016-10-01] MEDS: LUBIPROSTONE 24 MCG CAP PO SCH ×2 (21:00→21:43)
[2016-10-01] MEDS: HALOPERIDOL 5 MG TAB PO SCH (21:00)
[2016-10-01] MEDS ORDERED: ALBUTEROL HFA 8 GM INHALER INH SCH (21:00)
[2016-10-01] MEDS: METOPROLOL 25 MG TAB PO SCH (21:00)
[2016-10-01] MEDS: SALMETEROL/FLUTICASONE 250/50 INHA INH SCH (21:43)
[2016-10-02] VITALS (20 sets, daily range): BP systolic 104–146; BP diastolic 58–80; PULSE 79–119; RESP 16–20
[2016-10-02] MEDS: IPRATROPIUM (NEB) 0.5 MG/2.5 ML AMP HHN SCH ×4 (00:48→19:45)
[2016-10-02] MEDS: LEVALBUTEROL (NEB) 0.63 MG/3 ML AMP HHN SCH ×4 (00:48→19:45)
[2016-10-02] MEDS: LORAZEPAM 2 MG INJ IV PRN ×2 (01:07→22:42)
[2016-10-02] MEDS: SOD CHLORIDE 0.9% 1,000 ML IV SCH (01:17)
[2016-10-02] MEDS: FUROSEMIDE 20 MG INJ IV SCH ×2 (06:15→17:22)
[2016-10-02 07:39] LABS: POTASSIUM 4.2 mmol/L (3.5-5.1)
[2016-10-02 07:42] LABS: CREATININE 0.51 mg/dl (0.44-1.00)
[2016-10-02 07:43] LABS: CALCIUM 8.4 mg/dl (8.4-10.2); MAGNESIUM 2.1 mg/dl (1.7-2.5)
--- NOTE | 2016-10-02 08:34 | RADRPT ---
PROCEDURE: XR Chest. CLINICAL INDICATION: Shortness of breath. TECHNIQUE: Single frontal view. COMPARISON: 10/01/2016. FINDINGS: There is bilateral interstitial disease consistent with pulmonary edema. Left basilar atelectasis o r pneumonia is unchanged. The heart is enlarged. There is calcification in the aorta consistent with atherosclerosis. There is no pleural effusion. There is no pneumothorax. IMPRESSION: 1. Pulmonary edema. 2. Left basilar atelectasis or pneumonia. 3. Cardiomegaly and atherosclerosis. 4. No change from 10/01/2016. RPTAT: QQ .Jason Nunez MD, MD Date Time Electronically viewed and signed by .Jason Nunez MD, MD on 10/02/2016 08:34 .R/
[2016-10-02] MEDS: METOPROLOL 25 MG TAB PO SCH ×2 (09:00→21:24)
[2016-10-02] MEDS: HALOPERIDOL 5 MG TAB PO SCH ×2 (09:00→21:21)
[2016-10-02] MEDS: LUBIPROSTONE 24 MCG CAP PO SCH ×2 (09:00→21:20)
[2016-10-02] MEDS: AMLODIPINE 10 MG TAB PO SCH (09:00)
[2016-10-02] MEDS: DOCUSATE SODIUM 100 MG CAP PO SCH (09:00)
[2016-10-02 09:06] LABS: AADO2 Arterial 200.4 mmHg (7.0-24.0); Allen Test ACCEPTAB; Arterial Base Excess 13.2 mmol/L (-3.0-3); Arterial COHb 0.3 % (0.0-3.0); Arterial Fraction of Oxyhgb 95.4 % (93.0-99.0); Arterial HCO3 41.2 mmol/L (22.0-26.0); Arterial MetHb 0.1 % (0.0-1.5); Arterial Total Hemglobin 14.4 g/dl (12.0-18.0); Blood Gas IEPAP 18/8; MODE MASK - BIPAP
[2016-10-02] MEDS: SALMETEROL/FLUTICASONE 250/50 INHA INH SCH ×2 (09:15→21:20)
[2016-10-02] MEDS: METHYLPREDNISOLONE 125 MG INJ IV SCH ×2 (09:15→21:20)
--- NOTE | 2016-10-02 11:33 | CONS ---
Date/Time of Note Date/Time of Note DATE: 10/02/16 TIME: 11:32 Consult Date/Type/Reason Admit Date/Time Oct 01, 2016 at 01:02 Initial Consult Date 10/01/16 Type of Consultation: pulmonary Ordering Provider: OLESYA OBANDO MD Subjective Patient presented today with shortness of breath Objective Vital Signs Date Time Temp Pulse Resp B/P Pulse Ox O2 Delivery O2 Flow Rate FiO2 10/02/16 11:30 98.0 103 18 134/80 88 10/02/16 10:10 3.0 10/02/16 09:10 40 10/01/16 02:58 Mask Intake and Output 10/01/16 10/01/16 10/02/16 15:00 23:00 07:00 Intake Total 60 ml 160 ml Output Total 1900 ml 1900 ml Balance -1840 ml -1740 ml PHYSICAL EXAMINATION: GENERAL: Elderly-appearing lady, arousable on BiPAP. VITAL SIGNS: As above NECK: Supple. No JVD or lymphadenopathy. CARDIAC: S1, S2. No added sounds or murmurs. CHEST: Diminished air entry bilaterally. ABDOMEN: Soft, nontender. No guarding or rebound. EXTREMITIES: No cyanosis, clubbing, edema. NEUROLOGIC: Grossly intact. No focal deficits. Results/Medications Result Diagram: 10/01/16 0553 10/02/16 0633 Results 24 hrs Laboratory Tests Test 10/01/16 13:58 10/01/16 15:00 10/01/16 17:30 10/01/16 18:00 Arterial Blood HCO3 36.8 H 37.5 H Arterial Blood Base Excess 7.1 H 9.1 H Arterial Blood Oxygen Saturation 96.0 97.3 Chaitanya Test ACCEPTAB ACCEPTAB Arterial Blood Gas Puncture Site Left Radial Left Radial Arterial Blood Carboxyhemoglobin 0.2 0 Arterial Blood Date Drawn 10/01/2016 1:55:47 PM 10/01/2016 5:52:53 PM Arterial Blood Methemoglobin 0.2 0.2 Arterial Blood pCO2 (Temp correct) 79.2 H 69.3 H Arterial Blood pH (Temp corrected) 7.285 *L 7.351 Arterial Blood pO2 (Temp corrected) 90.7 98.3 Blood Gas A-a O2 Differential 286.6 H 289.8 H Blood Gas Actual Respiration Rate 18 22 Blood Gas Critical Value Read Back K NIEVES RN Blood Gas IPAP/EPAP Ratio 15/ 18/8 Blood Gas Modality MASK - BIPAP BIPAP Blood Gas Notified Time 10/01/2016 2:09:06 PM 10/01/2016 6:05:03 PM Blood Gas Notified Whom VERA WS Blood Gas Respiration Rate 18.0 20.0 Blood Gas Specimen Source Blood arterial Blood arterial Blood Gas Temperature 37.0 37.0 FiO2 65.0 65.0 Oxyhemoglobin Percent 95.6 97.1 Total Hemoglobin 13.9 14.2 Urine Random Sodium 18 L Urine Bacteria MODERATE Urine Bilirubin NEGATIVE Urine Clarity CLEAR Urine Color LT. YELLOW Urine Epithelial Cells FEW Urine Glucose NEGATIVE Urine Hemoglobin NEGATIVE Urine Ketones NEGATIVE Urine Leukocyte Esterase 2+ H Urine Microscopic RBC 0-2 Urine Microscopic WBC 25-50 Urine Nitrite NEGATIVE Urine Osmolality 118 L Urine Random Creatinine 14.78 L Urine Specific [place] <=1.005 L Urine Total Protein NEGATIVE Urine Urobilinogen 0.2 E.U./dL Urine pH 5.5 Blood Gas Low PEEP Setting 8.0 Blood Gas Pressure Support 10 Test 10/01/16 18:24 10/02/16 06:33 10/02/16 08:00 Sodium Level 126 L 128 L Anion Gap 12 B-Type Natriuretic Peptide 472 H Blood Urea Nitrogen 17 Calcium Level 8.4 Carbon Dioxide Level 39 H Chloride Level 81 L Creatinine 0.51 Free Thyroxine 1.43 Glucose Level 108 Magnesium Level 2.1 Potassium Level 4.2 Random Cortisol Pending Thyroid Stimulating Hormone (TSH) 0.474 Arterial Blood HCO3 41.2 *H Arterial Blood Base Excess 13.2 H Arterial Blood Oxygen Saturation 95.8 Chaitanya Test ACCEPTAB Arterial Blood Gas Puncture Site Left Radial Arterial Blood Carboxyhemoglobin 0.3 Arterial Blood Date Drawn 10/02/2016 8:50:14 AM Arterial Blood Methemoglobin 0.1 Arterial Blood pCO2 (Temp correct) 66.9 H Arterial Blood pH (Temp corrected) 7.407 Arterial Blood pO2 (Temp corrected) 80.8 Blood Gas A-a O2 Differential 200.4 H Blood Gas Actual Respiration Rate 20 Blood Gas Critical Value Read Back Morelia SRAVANTHI RN Blood Gas IPAP/EPAP Ratio 188 Blood Gas Modality MASK - BIPAP Blood Gas Notified Time 10/02/2016 9:06:03 AM Blood Gas Notified Whom VERA Blood Gas Respiration Rate 20.0 Blood Gas Specimen Source Blood arterial Blood Gas Temperature 37.0 FiO2 50.0 Oxyhemoglobin Percent 95.4 Total Hemoglobin 14.4 Medications Current Medications Ondansetron HCl (Zofran Inj) 4 mg Q6H PRN IV NAUSEA AND/OR VOMITING; Start at 03:30 Acetaminophen (Tylenol Tab) 650 mg Q6H PRN PO PAIN AND OR ELEVATED TEMP; Start 10/01/16 at 03:30 Methylprednisolone Sodium Succinate (Solu-Medrol) 80 mg Q12 IV Last administered on 10/02/16 09:15; Admin Dose 80 MG; Start 10/01/16 at 09:00 Amlodipine Besylate (Norvasc) 10 mg DAILY PO ; Start 10/02/16 at 09:00 Clonazepam (Klonopin) 0.5 mg BID PRN PO AGITATION/ANXIETY; Start 10/01/16 at 14 :00 Docusate Sodium (Colace) 100 mg DAILY PO ; Start 10/02/16 at 09:00 Ergocalciferol (Drisdol) 50,000 unit Q7D PO Last administered on 10/01/16 17: 35; Admin Dose 50,000 UNIT; Start 10/01/16 at 14:00 Lubiprostone (Amitiza) 24 mcg BID PO ; Start 10/01/16 at 21:00 Metoprolol Tartrate (Lopressor) 25 mg BID PO ; Start 10/01/16 at 21:00 Salmeterol Xinafoate/ Fluticasone (Advair 250/50 Diskus) 1 inh BID INH Last administered on 10/02/16 09:15; Admin Dose 1 INH; Start 10/01/16 at 21:00 Haloperidol 5 mg 5 mg BID PO ; Start 10/01/16 at 21:00 Ceftriaxone Sodium (Rocephin) 50 ml @ 100 mls/hr Q24H IVPB Last administered on 10/01/16 17:34; Admin Dose 100 MLS/HR; Start 10/01/16 at 14:30 Lorazepam 0.5 mg 0.5 mg Q8H PRN IV AGITATION/ANXIETY Last administered on 01:07; Admin Dose 0.5 MG; Start 10/01/16 at 22:30 Sodium Chloride (NS) 1,000 ml @ 40 mls/hr Q24H IV Last administered on 1/24/ 17at 01:17; Admin Dose 40 MLS/HR; Start 10/02/16 at 01:30 Assessment/Plan Chief Complaint/Hosp Course IMPRESSION AND PLAN: 1. Acute on chronic hypercapnic respiratory failure, likely secondary to chronic obstructive pulmonary disease exacerbation and congestive heart failure. 2. Developmental delay. 3. Likely underlying interstitial edema. 4. Questionable diastolic dysfunction. 5. Possible aspiration syndrome The patient should have: 1. Gentle diuresis if tolerated. 2. Renal recommendations, correction of hyponatremia. 3. Bronchodilators and steroid taper. 4. Trial off noninvasive positive pressure ventilation 5. Speech therapy evaluation 6. Encourage out of bed Problems: MARIELA JEFFREY MD, [facility] Oct 02, 2016 11:33
--- NOTE | 2016-10-02 12:10 | CONS ---
Date/Time of Note Date/Time of Note DATE: 10/02/16 TIME: 12:07 Assessment/Plan Assessment/Plan Additional Assessment/Plan 61 yo Female with 1) Hyponatremia 2) Respiratory Failure 3) CHF 4) COPD 5) Metabolic Alkalosis 6) Hx of HTN 7) Possible PNA 8) Abnormal UA, Likely UTI with possible Urinary Retention Hyponatremia likely multifactorial in the setting of Chronic Lung Disease, CHF and Medication Rx. Improving Now 128, TSH Normal, Cortisol pending. Cont Keller catheter, Strict Is and Os Benefit of Diuretic Rx outweighs Risk of diuretic Rx with respect to Hyponatremia BNP elevated, Appreciate 2D Echo for further evaluation of Diastolic Heart Failure. Thank you for the opportunity to participate in the care of Ms Kulkarni Please do not hesitate to contact me if you have any questions or concerns. Consultation Date/Type/Reason Admit Date/Time Oct 01, 2016 at 01:02 Initial Consult Date 10/01/16 Type of Consultation: pulmonary Referring Provider: OLESYA OBANDO MD 24 HR Interval Summary Free Text/Dictation Improved mental status, Off BIPAP Constitutional: requiring O2 Exam/Review of Systems Vital Signs Vitals Vital Signs Date Time Temp Pulse Resp B/P Pulse Ox O2 Delivery O2 Flow Rate FiO2 10/02/16 11:30 98.0 103 18 134/80 88 10/02/16 10:10 3.0 10/02/16 09:10 40 10/01/16 02:58 Mask Intake and Output 10/01/16 10/01/16 10/02/16 15:00 23:00 07:00 Intake Total 60 ml 160 ml Output Total 1900 ml 1900 ml Balance -1840 ml -1740 ml Exam Constitutional: No distress Head: atraumatic Eyes: EOMI Neck: No jvd Respiratory: diminished breath sounds, No labored breathing Cardiovascular: regular rate and rhythm, No edema Gastrointestinal: non-tender, soft Neurological: 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 II-XII intact, No lethargic Skin: No diaphoresis Results Result Diagram: 10/01/16 0553 10/02/16 0633 Results 24 hrs Laboratory Tests Test 10/01/16 13:58 10/01/16 15:00 10/01/16 17:30 10/01/16 18:00 Arterial Blood HCO3 36.8 H 37.5 H Arterial Blood Base Excess 7.1 H 9.1 H Arterial Blood Oxygen Saturation 96.0 97.3 Chaitanya Test ACCEPTAB ACCEPTAB Arterial Blood Gas Puncture Site Left Radial Left Radial Arterial Blood Carboxyhemoglobin 0.2 0 Arterial Blood Date Drawn 10/01/2016 1:55:47 PM 10/01/2016 5:52:53 PM Arterial Blood Methemoglobin 0.2 0.2 Arterial Blood pCO2 (Temp correct) 79.2 H 69.3 H Arterial Blood pH (Temp corrected) 7.285 *L 7.351 Arterial Blood pO2 (Temp corrected) 90.7 98.3 Blood Gas A-a O2 Differential 286.6 H 289.8 H Blood Gas Actual Respiration Rate 18 22 Blood Gas Critical Value Read Back Eran NIEVES RN Blood Gas IPAP/EPAP Ratio 21/01 18 Blood Gas Modality MASK - BIPAP BIPAP Blood Gas Notified Time 10/01/2016 2:09:06 PM 10/01/2016 6:05:03 PM Blood Gas Notified Whom JLD WS Blood Gas Respiration Rate 18.0 20.0 Blood Gas Specimen Source Blood arterial Blood arterial Blood Gas Temperature 37.0 37.0 FiO2 65.0 65.0 Oxyhemoglobin Percent 95.6 97.1 Total Hemoglobin 13.9 14.2 Urine Random Sodium 18 L Urine Bacteria MODERATE Urine Bilirubin NEGATIVE Urine Clarity CLEAR Urine Color LT. YELLOW Urine Epithelial Cells FEW Urine Glucose NEGATIVE Urine Hemoglobin NEGATIVE Urine Ketones NEGATIVE Urine Leukocyte Esterase 2+ H Urine Microscopic RBC 0-2 Urine Microscopic WBC 25-50 Urine Nitrite NEGATIVE Urine Osmolality 118 L Urine Random Creatinine 14.78 L Urine Specific [place] <=1.005 L Urine Total Protein NEGATIVE Urine Urobilinogen 0.2 E.U./dL Urine pH 5.5 Blood Gas Low PEEP Setting 8.0 Blood Gas Pressure Support 10 Test 10/01/16 18:24 10/02/16 06:33 10/02/16 08:00 Sodium Level 126 L 128 L Anion Gap 12 B-Type Natriuretic Peptide 472 H Blood Urea Nitrogen 17 Calcium Level 8.4 Carbon Dioxide Level 39 H Chloride Level 81 L Creatinine 0.51 Free Thyroxine 1.43 Glucose Level 108 Magnesium Level 2.1 Potassium Level 4.2 Random Cortisol Pending Thyroid Stimulating Hormone (TSH) 0.474 Arterial Blood HCO3 41.2 *H Arterial Blood Base Excess 13.2 H Arterial Blood Oxygen Saturation 95.8 Chaitanya Test ACCEPTAB Arterial Blood Gas Puncture Site Left Radial Arterial Blood Carboxyhemoglobin 0.3 Arterial Blood Date Drawn 10/02/2016 8:50:14 AM Arterial Blood Methemoglobin 0.1 Arterial Blood pCO2 (Temp correct) 66.9 H Arterial Blood pH (Temp corrected) 7.407 Arterial Blood pO2 (Temp corrected) 80.8 Blood Gas A-a O2 Differential 200.4 H Blood Gas Actual Respiration Rate 20 Blood Gas Critical Value Read Back H TEAGLE RN Blood Gas IPAP/EPAP Ratio 18/8 Blood Gas Modality MASK - BIPAP Blood Gas Notified Time 10/02/2016 9:06:03 AM Blood Gas Notified Whom JLD Blood Gas Respiration Rate 20.0 Blood Gas Specimen Source Blood arterial Blood Gas Temperature 37.0 FiO2 50.0 Oxyhemoglobin Percent 95.4 Total Hemoglobin 14.4 Medications Medications Current Medications Ondansetron HCl (Zofran Inj) 4 mg Q6H PRN IV NAUSEA AND/OR VOMITING; Start at 03:30 Acetaminophen (Tylenol Tab) 650 mg Q6H PRN PO PAIN AND OR ELEVATED TEMP; Start 10/01/16 at 03:30 Methylprednisolone Sodium Succinate (Solu-Medrol) 80 mg Q12 IV Last administered on 10/02/16 09:15; Admin Dose 80 MG; Start 10/01/16 at 09:00 Amlodipine Besylate (Norvasc) 10 mg DAILY PO ; Start 10/02/16 at 09:00 Clonazepam (Klonopin) 0.5 mg BID PRN PO AGITATION/ANXIETY; Start 10/01/16 at 14 :00 Docusate Sodium (Colace) 100 mg DAILY PO ; Start 10/02/16 at 09:00 Ergocalciferol (Drisdol) 50,000 unit Q7D PO Last administered on 10/01/16 17: 35; Admin Dose 50,000 UNIT; Start 10/01/16 at 14:00 Lubiprostone (Amitiza) 24 mcg BID PO ; Start 10/01/16 at 21:00 Metoprolol Tartrate (Lopressor) 25 mg BID PO ; Start 10/01/16 at 21:00 Salmeterol Xinafoate/ Fluticasone (Advair 250/50 Diskus) 1 inh BID INH Last administered on 10/02/16 09:15; Admin Dose 1 INH; Start 10/01/16 at 21:00 Haloperidol 5 mg 5 mg BID PO ; Start 10/01/16 at 21:00 Ceftriaxone Sodium (Rocephin) 50 ml @ 100 mls/hr Q24H IVPB Last administered on 10/01/16 17:34; Admin Dose 100 MLS/HR; Start 10/01/16 at 14:30 Lorazepam 0.5 mg 0.5 mg Q8H PRN IV AGITATION/ANXIETY Last administered on 01:07; Admin Dose 0.5 MG; Start 10/01/16 at 22:30 Sodium Chloride (NS) 1,000 ml @ 40 mls/hr Q24H IV Last administered on 01:17; Admin Dose 40 MLS/HR; Start 10/02/16 at 01:30 Procedures Procedures PROCEDURE: XR Chest. CLINICAL INDICATION: Shortness of breath. TECHNIQUE: Single frontal view. COMPARISON: 10/01/2016. FINDINGS: There is bilateral interstitial disease consistent with pulmonary edema. Left basilar atelectasis or pneumonia is unchanged. The heart is enlarged. There is calcification in the aorta consistent with atherosclerosis. There is no pleural effusion. There is no pneumothorax. IMPRESSION: 1. Pulmonary edema. 2. Left basilar atelectasis or pneumonia. 3. Cardiomegaly and atherosclerosis. 4. No change from 10/01/2016. RPTAT: QQ .Jason Nunez MD, MD Date Time Electronically viewed and signed by .Jason Nunez MD, MD on 10/02/2016 08:34 MAYRA JENSEN MD Oct 02, 2016 12:10
--- NOTE | 2016-10-02 12:21 | PN ---
Date/Time of Note Date/Time of Note DATE: 10/02/16 TIME: 12:20 Assessment/Plan VTE Prophylaxis VTE Prophylaxis Intervention: SCD's Lines/Catheters IV Catheter Type (from Nrs): Peripheral IV Urinary Cath still in place: Yes Reason Cath still needed: other (indicate) Assessment/Plan Chief Complaint/Hosp Course IMPRESSION: 1. Chronic obstructive pulmonary disease exacerbation with underlying pneumonia. International Guest Coordinator has been consulted, continue breathing treatment, Solu-Medrol, off BiPAP, stable on oxygen via nasal cannula Continue Rocephin 2. Pneumonia. On Rocephin 3. Shortness of breath and hypoxia secondary to #1 and #2. As above 4. Hyponatremia and hypochloremia. Continue IV fluids, nephrology has been consulted May be medication related 5. Hypertension. Better controlled, continue medical management 6. Probable congestive heart failure, given chest x-ray finding of pulmonary vascular congestion. Continue Lasix, follow-up ABG and chest x-ray in a.m. Will also obtain a 2-D echo 7. Altered mental status Resolved, patient is awake alert and oriented Altered mental status was likely medication related, due to benzodiazepine versus hypoxemia Further workup and management per clinical course. Problems: Subjective 24 Hr Interval Summary Free Text/Dictation Patient denies of any chest pain Respiratory distress has improved significantly and patient is off BiPAP Has been seen and evaluated by speech therapy and has been cleared for soft diet Exam/Review of Systems Vital Signs Vitals Vital Signs Date Time Temp Pulse Resp B/P Pulse Ox O2 Delivery O2 Flow Rate FiO2 10/02/16 11:30 98.0 103 18 134/80 88 10/02/16 10:10 3.0 10/02/16 09:10 40 10/01/16 02:58 Mask Intake and Output 10/01/16 10/01/16 10/02/16 15:00 23:00 07:00 Intake Total 60 ml 160 ml Output Total 1900 ml 1900 ml Balance -1840 ml -1740 ml Exam General: The patient is well-developed, Not in acute distress. HEENT: Atraumatic, normocephalic. The pupils are equal and round . Neck: Supple with full range of motion. Chest: Normal expansion of the thorax during inspiration Lungs: Clear to auscultation bilaterally Heart: Normal S1-S2, Regular rhythm and rate. Abdomen: Soft , nontender, nondistended , bowel sounds are present. Extremities: Normal to inspection, no edema no cyanosis Neurologic: Normal mental status,The patient is awake, alert and oriented . Results Result Diagram: 10/01/16 0553 10/02/16 0633 Results 24 hrs Laboratory Tests Test 10/01/16 13:58 10/01/16 15:00 10/01/16 17:30 10/01/16 18:00 Arterial Blood HCO3 36.8 H 37.5 H Arterial Blood Base Excess 7.1 H 9.1 H Arterial Blood Oxygen Saturation 96.0 97.3 Chaitanya Test ACCEPTAB ACCEPTAB Arterial Blood Gas Puncture Site Left Radial Left Radial Arterial Blood Carboxyhemoglobin 0.2 0 Arterial Blood Date Drawn 10/01/2016 1:55:47 PM 10/01/2016 5:52:53 PM Arterial Blood Methemoglobin 0.2 0.2 Arterial Blood pCO2 (Temp correct) 79.2 H 69.3 H Arterial Blood pH (Temp corrected) 7.285 *L 7.351 Arterial Blood pO2 (Temp corrected) 90.7 98.3 Blood Gas A-a O2 Differential 286.6 H 289.8 H Blood Gas Actual Respiration Rate 18 22 Blood Gas Critical Value Read Back Eran NIEVES RN Blood Gas IPAP/EPAP Ratio 21/01 26/04 Blood Gas Modality MASK - BIPAP BIPAP Blood Gas Notified Time 10/01/2016 2:09:06 PM 10/01/2016 6:05:03 PM Blood Gas Notified Whom JLD WS Blood Gas Respiration Rate 18.0 20.0 Blood Gas Specimen Source Blood arterial Blood arterial Blood Gas Temperature 37.0 37.0 FiO2 65.0 65.0 Oxyhemoglobin Percent 95.6 97.1 Total Hemoglobin 13.9 14.2 Urine Random Sodium 18 L Urine Bacteria MODERATE Urine Bilirubin NEGATIVE Urine Clarity CLEAR Urine Color LT. YELLOW Urine Epithelial Cells FEW Urine Glucose NEGATIVE Urine Hemoglobin NEGATIVE Urine Ketones NEGATIVE Urine Leukocyte Esterase 2+ H Urine Microscopic RBC 0-2 Urine Microscopic WBC 25-50 Urine Nitrite NEGATIVE Urine Osmolality 118 L Urine Random Creatinine 14.78 L Urine Specific [place] <=1.005 L Urine Total Protein NEGATIVE Urine Urobilinogen 0.2 E.U./dL Urine pH 5.5 Blood Gas Low PEEP Setting 8.0 Blood Gas Pressure Support 10 Test 10/01/16 18:24 10/02/16 06:33 10/02/16 08:00 Sodium Level 126 L 128 L Anion Gap 12 B-Type Natriuretic Peptide 472 H Blood Urea Nitrogen 17 Calcium Level 8.4 Carbon Dioxide Level 39 H Chloride Level 81 L Creatinine 0.51 Free Thyroxine 1.43 Glucose Level 108 Magnesium Level 2.1 Potassium Level 4.2 Random Cortisol Pending Thyroid Stimulating Hormone (TSH) 0.474 Arterial Blood HCO3 41.2 *H Arterial Blood Base Excess 13.2 H Arterial Blood Oxygen Saturation 95.8 Chaitanya Test ACCEPTAB Arterial Blood Gas Puncture Site Left Radial Arterial Blood Carboxyhemoglobin 0.3 Arterial Blood Date Drawn 10/02/2016 8:50:14 AM Arterial Blood Methemoglobin 0.1 Arterial Blood pCO2 (Temp correct) 66.9 H Arterial Blood pH (Temp corrected) 7.407 Arterial Blood pO2 (Temp corrected) 80.8 Blood Gas A-a O2 Differential 200.4 H Blood Gas Actual Respiration Rate 20 Blood Gas Critical Value Read Back H TEAGLE RN Blood Gas IPAP/EPAP Ratio 18/8 Blood Gas Modality MASK - BIPAP Blood Gas Notified Time 10/02/2016 9:06:03 AM Blood Gas Notified Whom JLD Blood Gas Respiration Rate 20.0 Blood Gas Specimen Source Blood arterial Blood Gas Temperature 37.0 FiO2 50.0 Oxyhemoglobin Percent 95.4 Total Hemoglobin 14.4 Medications Medications Current Medications Ondansetron HCl (Zofran Inj) 4 mg Q6H PRN IV NAUSEA AND/OR VOMITING; Start at 03:30 Acetaminophen (Tylenol Tab) 650 mg Q6H PRN PO PAIN AND OR ELEVATED TEMP; Start 10/01/16 at 03:30 Methylprednisolone Sodium Succinate (Solu-Medrol) 80 mg Q12 IV Last administered on 10/02/16 09:15; Admin Dose 80 MG; Start 10/01/16 at 09:00 Amlodipine Besylate (Norvasc) 10 mg DAILY PO ; Start 10/02/16 at 09:00 Clonazepam (Klonopin) 0.5 mg BID PRN PO AGITATION/ANXIETY; Start 10/01/16 at 14 :00 Docusate Sodium (Colace) 100 mg DAILY PO ; Start 10/02/16 at 09:00 Ergocalciferol (Drisdol) 50,000 unit Q7D PO Last administered on 10/01/16 17: 35; Admin Dose 50,000 UNIT; Start 10/01/16 at 14:00 Lubiprostone (Amitiza) 24 mcg BID PO ; Start 10/01/16 at 21:00 Metoprolol Tartrate (Lopressor) 25 mg BID PO ; Start 10/01/16 at 21:00 Salmeterol Xinafoate/ Fluticasone (Advair 250/50 Diskus) 1 inh BID INH Last administered on 10/02/16 09:15; Admin Dose 1 INH; Start 10/01/16 at 21:00 Haloperidol 5 mg 5 mg BID PO ; Start 10/01/16 at 21:00 Ceftriaxone Sodium (Rocephin) 50 ml @ 100 mls/hr Q24H IVPB Last administered on 10/01/16 17:34; Admin Dose 100 MLS/HR; Start 10/01/16 at 14:30 Lorazepam 0.5 mg 0.5 mg Q8H PRN IV AGITATION/ANXIETY Last administered on 01:07; Admin Dose 0.5 MG; Start 10/01/16 at 22:30 Sodium Chloride (NS) 1,000 ml @ 40 mls/hr Q24H IV Last administered on 01:17; Admin Dose 40 MLS/HR; Start 10/02/16 at 01:30 OLESYA OABNDO MD Oct 02, 2016 12:21
[2016-10-02] MEDS: CEFTRIAXONE 1 GM/50 ML (PMX) 50 ML IVPB SCH (14:46)
[2016-10-02 15:09] LABS: AADO2 Arterial 42.3 mmHg (7.0-24.0); Allen Test ACCEPTAB; Arterial Base Excess 16.5 mmol/L (-3.0-3); Arterial COHb 0.3 % (0.0-3.0); Arterial Fraction of Oxyhgb 72.3 % (93.0-99.0); Arterial HCO3 43.2 mmol/L (22.0-26.0); Arterial MetHb 0.2 % (0.0-1.5); Arterial Total Hemglobin 14.4 g/dl (12.0-18.0); MODE ROOM AIR
[2016-10-03] VITALS (12 sets, daily range): BP systolic 113–134; BP diastolic 70–77; PULSE 78–105; RESP 18–20
[2016-10-03] MEDS: SOD CHLORIDE 0.9% 1,000 ML IV SCH (01:30)
[2016-10-03] MEDS: LEVALBUTEROL (NEB) 0.63 MG/3 ML AMP HHN SCH ×4 (01:40→21:04)
[2016-10-03] MEDS: IPRATROPIUM (NEB) 0.5 MG/2.5 ML AMP HHN SCH ×4 (01:40→21:03)
[2016-10-03] MEDS: FUROSEMIDE 20 MG INJ IV SCH (05:20)
[2016-10-03 07:00] LABS: HEMATOCRIT 43.2 % (37.0-47.0); HEMOGLOBIN 13.9 g/dl (12.0-16.0); LYMPHOCYTES # 0.4 10^3/ul (0.8-2.9); LYMPHOCYTES % 3.9 % (15.0-51.0); MEAN CORPUSCULAR HEMOGLOBIN 28.3 pg (29.0-33.0); MEAN CORPUSCULAR HGB CONC 32.2 g/dl (32.0-37.0); MEAN CORPUSCULAR VOLUME 87.7 fl (82.0-101.0); MEAN PLATELET VOLUME 7.2 fl (7.4-10.4); MONOCYTE # 0.4 10^3/ul (0.3-0.9); MONOCYTES % 4.2 % (0.0-11.0); NEUTROPHIL # 8.4 10^3/ul (1.6-7.5); NEUTROPHILS % 91.9 % (39.0-77.0); PLATELET COUNT 404 10^3/UL (140-440); RED BLOOD COUNT 4.93 10^6/ul (4.20-5.40); RED CELL DISTRIBUTION WIDTH 16.7 % (11.5-14.5); UNCORRECTED WBC 9.1 10^3/ul (4.8-10.8); WHITE BLOOD COUNT 9.1 10^3/ul (4.8-10.8)
[2016-10-03 07:05] LABS: CONDITION 1; LH ANALYZER COMMENTS 1
[2016-10-03 07:12] LABS: POTASSIUM 3.7 mmol/L (3.5-5.1)
[2016-10-03 07:14] LABS: CREATININE 0.44 mg/dl (0.44-1.00)
[2016-10-03 07:15] LABS: CALCIUM 8.8 mg/dl (8.4-10.2)
[2016-10-03] MEDS: METOPROLOL 25 MG TAB PO SCH ×2 (08:27→20:53)
[2016-10-03] MEDS: AMLODIPINE 10 MG TAB PO SCH (08:27)
[2016-10-03] MEDS: DOCUSATE SODIUM 100 MG CAP PO SCH (08:27)
[2016-10-03] MEDS: SALMETEROL/FLUTICASONE 250/50 INHA INH SCH ×2 (08:27→20:49)
[2016-10-03] MEDS: METHYLPREDNISOLONE 125 MG INJ IV SCH ×2 (08:27→20:50)
[2016-10-03] MEDS: LUBIPROSTONE 24 MCG CAP PO SCH ×2 (08:27→20:48)
[2016-10-03] MEDS: HALOPERIDOL 5 MG TAB PO SCH ×2 (08:27→20:48)
--- NOTE | 2016-10-03 09:49 | RADRPT ---
Echocardiogram Report Patient Name: JAK MANRIQUEZ Gender: Female Date: 1955 Study Date: 02-Oct-2016 Soap Mixer: Enmanuel Ott [facility] Location: [id number] Ref. Physician: OLESYA OBANDO Quality: Adequate Procedures: Transthoracic echocardiogram with complete 2D, M-Mode, and doppler examination. Indications: Congestive Heart Failure. 2D/M Mode Doppler Measurement Value Normal Ranges Measurement Value Normal Ranges LVIDd 2D 4.3 3.5 - 5.6 cm AV Peak Mehul 1.8 m/sec LVIDs 2D 2.3 2.1 - 4.1 cm AV Peak PG 13.0 mmHg FS 2D 47.6 % LVOT Peak Mehul 1.3 m/sec LVPWd 2D 1.0 0.6 - 1.1 cm LVOT Peak PG 7.0 mmHg IVSd 2D 0.9 0.6 - 1.1 cm TR Peak Mehul 3.6 m/sec IVS/LVPW 2D 0.9 TR Peak PG 52.0 mmHg AoR Diam 2D 3.2 2.0 - 3.7 cm RVSP 67.0 mmHg LA/Ao 2D 1 0 - 1 EDV 2D 82.3 cm3 ESV 2D 11.9 cm3 LA Dimen 2D 3.1 2.3 - 4.0 cm Findings Left Ventricle: Normal left ventricular systolic function. Normal left ventricular cavity size. Normal left ventricular wall thickness. Ejection fraction is visually estimated at 65 %. Tissue Doppler/Mitral Doppler indices are consistent with impaired relaxation (Stage I diastolic dysfunction). Right Ventricle: Normal right ventricular size. Normal right ventricular systolic function. Left Atrium: The left atrium is normal in size. Right Atrium: The right atrium is normal in size. Mitral Valve: Normal appearance and function of the mitral valve with trace physiologic regurgitation. Aortic Valve: No significant aortic stenosis or insufficiency. Aortic cusps appear mildly calcified. Tricuspid Valve: Normal appearance of the tricuspid valve. Estimated peak PA systolic pressure 67 mmHg. There is mild tricuspid regurgitation. Pericardium: Normal pericardium with no significant pericardial effusion. Aorta: Normal aortic root. IVC: Dilated IVC without respiratory collapse consistent with elevated right atrial pressure. Conclusions 1.Normal left ventricular systolic function. Normal left ventricular cavity size. Normal left ventricular wall thickness. Ejection fraction is visually estimated at 65 %. Tissue Doppler/Mitral Doppler indices are consistent with impaired relaxation (Stage I diastolic dysfunction). 2.Normal appearance and function of the mitral valve with trace physiologic regurgitation. 3.No significant aortic stenosis or insufficiency. Aortic cusps appear mildly calcified. 4.Normal appearance of the tricuspid valve. Estimated peak PA systolic pressure 67 mmHg. There is mild tricuspid regurgitation. 5.Dilated IVC without respiratory collapse consistent with elevated right atrial pressure. Electronically Signed By: Reed Richey 03-Oct-2016 09:49:07 -0800 Patient Name: JAK MANRIQUEZ Study Date: 02-Oct-[id number]
--- NOTE | 2016-10-03 11:31 | CONS ---
Date/Time of Note Date/Time of Note DATE: 10/03/16 TIME: 11:29 Consult Date/Type/Reason Admit Date/Time Oct 01, 2016 at 01:02 Initial Consult Date 10/01/16 Type of Consultation: pulmonary Ordering Provider: OLESYA OBANDO MD Subjective Comfortable, continues to improve. Objective Vital Signs Date Time Temp Pulse Resp B/P Pulse Ox O2 Delivery O2 Flow Rate FiO2 10/03/16 08:30 Nasal Cannula 3.0 10/03/16 08:23 85 10/03/16 08:11 97.9 18 131/76 96 10/02/16 23:16 40 Intake and Output 10/02/16 10/02/16 10/03/16 15:00 23:00 07:00 Intake Total 580 ml 1140 ml Output Total 900 ml 1500 ml Balance -320 ml -360 ml PHYSICAL EXAMINATION: GENERAL: Elderly-appearing lady, nc 02. VITAL SIGNS: As above NECK: Supple. No JVD or lymphadenopathy. CARDIAC: S1, S2. No added sounds or murmurs. CHEST: Diminished air entry bilaterally. ABDOMEN: Soft, nontender. No guarding or rebound. EXTREMITIES: No cyanosis, clubbing, edema. NEUROLOGIC: Grossly intact. No focal deficits. Results/Medications Result Diagram: 10/03/16 0550 10/03/16 0550 Results 24 hrs Laboratory Tests Test 10/02/16 14:22 10/03/16 05:50 Arterial Blood HCO3 43.2 *H Arterial Blood Base Excess 16.5 H Arterial Blood Oxygen Saturation 72.7 L Chaitanya Test ACCEPTAB Arterial Blood Gas Puncture Site Left Radial Arterial Blood Carboxyhemoglobin 0.3 Arterial Blood Date Drawn 10/02/2016 3:01:55 PM Arterial Blood Methemoglobin 0.2 Arterial Blood pCO2 (Temp correct) 59.8 H Arterial Blood pH (Temp corrected) 7.477 H Arterial Blood pO2 (Temp corrected) 35.8 *L Blood Gas A-a O2 Differential 42.3 H Blood Gas Critical Value Read Back H MILLIE JOHNSON Blood Gas Modality ROOM AIR Blood Gas Notified Time 10/02/2016 3:09:31 PM Blood Gas Notified Whom JLD Blood Gas Specimen Source Blood arterial Blood Gas Temperature 37.0 FiO2 21.0 Oxyhemoglobin Percent 72.3 L Total Hemoglobin 14.4 Anion Gap 13 Basophils # 0.0 Basophils % 0.0 Blood Morphology Comment Blood Urea Nitrogen 16 Calcium Level 8.8 Carbon Dioxide Level 41 *H Chloride Level 81 L Creatinine 0.44 Eosinophils # 0.0 Eosinophils % 0.0 Glucose Level 133 Hematocrit 43.2 Hemoglobin 13.9 Lymphocytes # 0.4 L Lymphocytes % 3.9 L Mean Corpuscular Hemoglobin 28.3 L Mean Corpuscular Hemoglobin Concent 32.2 Mean Corpuscular Volume 87.7 Mean Platelet Volume 7.2 L Monocytes # 0.4 Monocytes % 4.2 Neutrophils # 8.4 H Neutrophils % 91.9 H Nucleated Red Blood Cells # 0.0 Nucleated Red Blood Cells % 0.0 Platelet Count 404 # Potassium Level 3.7 Red Blood Count 4.93 Red Cell Distribution Width 16.7 H Sodium Level 131 L White Blood Count 9.1 Medications Current Medications Ondansetron HCl (Zofran Inj) 4 mg Q6H PRN IV NAUSEA AND/OR VOMITING; Start at 03:30 Acetaminophen (Tylenol Tab) 650 mg Q6H PRN PO PAIN AND OR ELEVATED TEMP; Start 10/01/16 at 03:30 Methylprednisolone Sodium Succinate (Solu-Medrol) 80 mg Q12 IV Last administered on 10/03/16 08:27; Admin Dose 80 MG; Start 10/01/16 at 09:00 Amlodipine Besylate (Norvasc) 10 mg DAILY PO Last administered on 10/03/16 08: 27; Admin Dose 10 MG; Start 10/02/16 at 09:00 Clonazepam (Klonopin) 0.5 mg BID PRN PO AGITATION/ANXIETY; Start 10/01/16 at 14 :00 Docusate Sodium (Colace) 100 mg DAILY PO Last administered on 10/03/16 08:27; Admin Dose 100 MG; Start 10/02/16 at 09:00 Ergocalciferol (Drisdol) 50,000 unit Q7D PO Last administered on 10/01/16 17: 35; Admin Dose 50,000 UNIT; Start 10/01/16 at 14:00 Lubiprostone (Amitiza) 24 mcg BID PO Last administered on 10/03/16 08:27; Admin Dose 24 MCG; Start 10/01/16 at 21:00 Metoprolol Tartrate (Lopressor) 25 mg BID PO Last administered on 10/03/16 08: 27; Admin Dose 25 MG; Start 10/01/16 at 21:00 Salmeterol Xinafoate/ Fluticasone (Advair 250/50 Diskus) 1 inh BID INH Last administered on 10/03/16 08:27; Admin Dose 1 INH; Start 10/01/16 at 21:00 Haloperidol 5 mg 5 mg BID PO Last administered on 10/03/16 08:27; Admin Dose 5 MG; Start 10/01/16 at 21:00 Ceftriaxone Sodium (Rocephin) 50 ml @ 100 mls/hr Q24H IVPB Last administered on 10/02/16 14:46; Admin Dose 100 MLS/HR; Start 10/01/16 at 14:30 Lorazepam 0.5 mg 0.5 mg Q8H PRN IV AGITATION/ANXIETY Last administered on 22:42; Admin Dose 0.5 MG; Start 10/01/16 at 22:30 Sodium Chloride (NS) 1,000 ml @ 40 mls/hr Q24H IV Last administered on 01:17; Admin Dose 40 MLS/HR; Start 10/02/16 at 01:30 Assessment/Plan Chief Complaint/Hosp Course IMPRESSION AND PLAN: 1. Acute on chronic hypercapnic respiratory failure, likely secondary to chronic obstructive pulmonary disease exacerbation and congestive heart failure. 2. Developmental delay. 3. Likely underlying interstitial edema. 4. Questionable diastolic dysfunction. 5. Possible aspiration syndrome The patient should have: 1. Gentle diuresis if tolerated. 2. Renal recommendations, correction of hyponatremia. Improved. 3. Bronchodilators and steroid taper. 4. Trial off noninvasive positive pressure ventilation 5. Speech therapy evaluation 6. Encourage out of bed consider Ten gordon. Problems: MARIELA JEFFREY MD, [facility] Oct 03, 2016 11:31
[2016-10-03] MEDS: CEFTRIAXONE 1 GM/50 ML (PMX) 50 ML IVPB SCH (14:20)
--- NOTE | 2016-10-03 16:22 | PDOCDIS ---
Discharge Instructions CONDITION Patient Condition: Good HOME CARE INSTRUCTIONS: Diet Instructions: Low Fat /Cholesterol ACTIVITY: Activity Restrictions: Special Program OLESYA OBANDO MD Oct 03, 2016 16:22
--- NOTE | 2016-10-03 16:30 | PN ---
Date/Time of Note Date/Time of Note DATE: 10/03/16 TIME: 16:23 Assessment/Plan VTE Prophylaxis VTE Prophylaxis Intervention: SCD's Lines/Catheters IV Catheter Type (from Nrs): Peripheral IV Urinary Cath still in place: Yes Reason Cath still needed: other (indicate) Assessment/Plan Chief Complaint/Hosp Course IMPRESSION: 1. Chronic obstructive pulmonary disease exacerbation with underlying pneumonia. 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 Pneumonia. On Rocephin 3. Shortness of breath and hypoxia secondary to #1 and #2. As above 4. Hyponatremia and hypochloremia. Improving , continue IV fluids, nephrology has been consulted May be medication related 5. Hypertension. Better controlled, continue medical management 6. Probable congestive heart failure, given chest x-ray finding of pulmonary vascular congestion. Continue Lasix, follow-up ABG and chest x-ray in a.m. Will also obtain a 2-D echo 7. Altered mental status Resolved, patient is awake alert and oriented Altered mental status was likely medication related, due to benzodiazepine versus hypoxemia Further workup and management per clinical course. Problems: Subjective 24 Hr Interval Summary Free Text/Dictation No acute changes Patient is able to tolerate oral intake Tolerating nasal cannula Exam/Review of Systems Vital Signs Vitals Vital Signs Date Time Temp Pulse Resp B/P Pulse Ox O2 Delivery O2 Flow Rate FiO2 10/03/16 15:52 98.4 97 18 113/70 92 10/03/16 14:50 Nasal Cannula 3.0 10/02/16 23:16 40 Intake and Output 10/02/16 10/02/16 10/03/16 15:00 23:00 07:00 Intake Total 580 ml 1140 ml Output Total 900 ml 1500 ml Balance -320 ml -360 ml Exam General: The patient is well-developed, Not in acute distress. HEENT: Atraumatic, normocephalic. The pupils are equal and round . Neck: Supple with full range of motion. Chest: Normal expansion of the thorax during inspiration Lungs: Clear to auscultation bilaterally Heart: Normal S1-S2, Regular rhythm and rate. Abdomen: Soft , nontender, nondistended , bowel sounds are present. Extremities: Normal to inspection, no edema no cyanosis Neurologic: Able to follow commands the patient is awake, alert Results Result Diagram: 10/03/16 0550 10/03/16 0550 Results 24 hrs Laboratory Tests Test 10/03/16 05:50 Anion Gap 13 Basophils # 0.0 Basophils % 0.0 Blood Morphology Comment Blood Urea Nitrogen 16 Calcium Level 8.8 Carbon Dioxide Level 41 *H Chloride Level 81 L Creatinine 0.44 Eosinophils # 0.0 Eosinophils % 0.0 Glucose Level 133 Hematocrit 43.2 Hemoglobin 13.9 Lymphocytes # 0.4 L Lymphocytes % 3.9 L Mean Corpuscular Hemoglobin 28.3 L Mean Corpuscular Hemoglobin Concent 32.2 Mean Corpuscular Volume 87.7 Mean Platelet Volume 7.2 L Monocytes # 0.4 Monocytes % 4.2 Neutrophils # 8.4 H Neutrophils % 91.9 H Nucleated Red Blood Cells # 0.0 Nucleated Red Blood Cells % 0.0 Platelet Count 404 # Potassium Level 3.7 Red Blood Count 4.93 Red Cell Distribution Width 16.7 H Sodium Level 131 L White Blood Count 9.1 Medications Medications Current Medications Ondansetron HCl (Zofran Inj) 4 mg Q6H PRN IV NAUSEA AND/OR VOMITING; Start at 03:30 Acetaminophen (Tylenol Tab) 650 mg Q6H PRN PO PAIN AND OR ELEVATED TEMP; Start 10/01/16 at 03:30 Methylprednisolone Sodium Succinate (Solu-Medrol) 80 mg Q12 IV Last administered on 10/03/16 08:27; Admin Dose 80 MG; Start 10/01/16 at 09:00 Amlodipine Besylate (Norvasc) 10 mg DAILY PO Last administered on 10/03/16 08: 27; Admin Dose 10 MG; Start 10/02/16 at 09:00 Clonazepam (Klonopin) 0.5 mg BID PRN PO AGITATION/ANXIETY; Start 10/01/16 at 14 :00 Docusate Sodium (Colace) 100 mg DAILY PO Last administered on 10/03/16 08:27; Admin Dose 100 MG; Start 10/02/16 at 09:00 Ergocalciferol (Drisdol) 50,000 unit Q7D PO Last administered on 10/01/16 17: 35; Admin Dose 50,000 UNIT; Start 10/01/16 at 14:00 Lubiprostone (Amitiza) 24 mcg BID PO Last administered on 10/03/16 08:27; Admin Dose 24 MCG; Start 10/01/16 at 21:00 Metoprolol Tartrate (Lopressor) 25 mg BID PO Last administered on 10/03/16 08: 27; Admin Dose 25 MG; Start 10/01/16 at 21:00 Salmeterol Xinafoate/ Fluticasone (Advair 250/50 Diskus) 1 inh BID INH Last administered on 10/03/16 08:27; Admin Dose 1 INH; Start 10/01/16 at 21:00 Haloperidol 5 mg 5 mg BID PO Last administered on 10/03/16 08:27; Admin Dose 5 MG; Start 10/01/16 at 21:00 Ceftriaxone Sodium (Rocephin) 50 ml @ 100 mls/hr Q24H IVPB Last administered on 10/03/16 14:20; Admin Dose 100 MLS/HR; Start 10/01/16 at 14:30 Lorazepam 0.5 mg 0.5 mg Q8H PRN IV AGITATION/ANXIETY Last administered on 22:42; Admin Dose 0.5 MG; Start 10/01/16 at 22:30 Sodium Chloride (NS) 1,000 ml @ 40 mls/hr Q24H IV Last administered on 01:17; Admin Dose 40 MLS/HR; Start 10/02/16 at 01:30 OLESYA OBANDO MD Oct 03, 2016 16:30
--- NOTE | 2016-10-03 17:31 | CONS ---
Date/Time of Note Date/Time of Note DATE: 10/03/16 TIME: 17:28 Assessment/Plan Assessment/Plan Additional Assessment/Plan 61 yo Female with 1) Hyponatremia- Improving 2) Respiratory Failure 3) CHF 4) COPD 5) Metabolic Alkalosis 6) Hx of HTN 7) Possible PNA 8) Abnormal UA, Likely UTI with possible Urinary Retention Hyponatremia likely multifactorial in the setting of Chronic Lung Disease, CHF and Medication Rx. Improving Now 131 TSH Normal, Cortisol Normal. Echo Reviewed BP Well Controlled. Will Hold Diuretic Rx at this time, Worsening Alkalosis, Hypochloremia Repeat Chemistry in am Thank you for the opportunity to participate in the care of Ms Kulkarni Please do not hesitate to contact me if you have any questions or concerns. Consultation Date/Type/Reason Admit Date/Time Oct 01, 2016 at 01:02 Initial Consult Date 10/01/16 Type of Consultation: Nephrology Referring Provider: OLESYA OBANDO MD 24 HR Interval Summary Constitutional: requiring O2 Exam/Review of Systems Vital Signs Vitals Vital Signs Date Time Temp Pulse Resp B/P Pulse Ox O2 Delivery O2 Flow Rate FiO2 10/03/16 17:20 3.0 10/03/16 16:58 83 10/03/16 15:52 98.4 18 113/70 92 10/03/16 14:50 Nasal Cannula 10/02/16 23:16 40 Intake and Output 10/02/16 10/02/16 10/03/16 15:00 23:00 07:00 Intake Total 580 ml 1140 ml Output Total 900 ml 1500 ml Balance -320 ml -360 ml Exam Constitutional: No distress ENMT: mucosa pink and moist Respiratory: crackles/rales, diminished breath sounds, No labored breathing Cardiovascular: regular rate and rhythm, No edema Gastrointestinal: non-tender, soft Neurological: No lethargic Skin: No diaphoresis Results Result Diagram: 10/03/16 0550 10/03/16 0550 Results 24 hrs Laboratory Tests Test 10/03/16 05:50 Anion Gap 13 Basophils # 0.0 Basophils % 0.0 Blood Morphology Comment Blood Urea Nitrogen 16 Calcium Level 8.8 Carbon Dioxide Level 41 *H Chloride Level 81 L Creatinine 0.44 Eosinophils # 0.0 Eosinophils % 0.0 Glucose Level 133 Hematocrit 43.2 Hemoglobin 13.9 Lymphocytes # 0.4 L Lymphocytes % 3.9 L Mean Corpuscular Hemoglobin 28.3 L Mean Corpuscular Hemoglobin Concent 32.2 Mean Corpuscular Volume 87.7 Mean Platelet Volume 7.2 L Monocytes # 0.4 Monocytes % 4.2 Neutrophils # 8.4 H Neutrophils % 91.9 H Nucleated Red Blood Cells # 0.0 Nucleated Red Blood Cells % 0.0 Platelet Count 404 # Potassium Level 3.7 Red Blood Count 4.93 Red Cell Distribution Width 16.7 H Sodium Level 131 L White Blood Count 9.1 Medications Medications Current Medications Ondansetron HCl (Zofran Inj) 4 mg Q6H PRN IV NAUSEA AND/OR VOMITING; Start at 03:30 Acetaminophen (Tylenol Tab) 650 mg Q6H PRN PO PAIN AND OR ELEVATED TEMP; Start 10/01/16 at 03:30 Methylprednisolone Sodium Succinate (Solu-Medrol) 80 mg Q12 IV Last administered on 10/03/16 08:27; Admin Dose 80 MG; Start 10/01/16 at 09:00 Amlodipine Besylate (Norvasc) 10 mg DAILY PO Last administered on 10/03/16 08: 27; Admin Dose 10 MG; Start 10/02/16 at 09:00 Clonazepam (Klonopin) 0.5 mg BID PRN PO AGITATION/ANXIETY; Start 10/01/16 at 14 :00 Docusate Sodium (Colace) 100 mg DAILY PO Last administered on 10/03/16 08:27; Admin Dose 100 MG; Start 10/02/16 at 09:00 Ergocalciferol (Drisdol) 50,000 unit Q7D PO Last administered on 10/01/16 17: 35; Admin Dose 50,000 UNIT; Start 10/01/16 at 14:00 Lubiprostone (Amitiza) 24 mcg BID PO Last administered on 10/03/16 08:27; Admin Dose 24 MCG; Start 10/01/16 at 21:00 Metoprolol Tartrate (Lopressor) 25 mg BID PO Last administered on 10/03/16 08: 27; Admin Dose 25 MG; Start 10/01/16 at 21:00 Salmeterol Xinafoate/ Fluticasone (Advair 250/50 Diskus) 1 inh BID INH Last administered on 10/03/16 08:27; Admin Dose 1 INH; Start 10/01/16 at 21:00 Haloperidol 5 mg 5 mg BID PO Last administered on 10/03/16 08:27; Admin Dose 5 MG; Start 10/01/16 at 21:00 Ceftriaxone Sodium (Rocephin) 50 ml @ 100 mls/hr Q24H IVPB Last administered on 10/03/16 14:20; Admin Dose 100 MLS/HR; Start 10/01/16 at 14:30 Lorazepam 0.5 mg 0.5 mg Q8H PRN IV AGITATION/ANXIETY Last administered on 22:42; Admin Dose 0.5 MG; Start 10/01/16 at 22:30 Sodium Chloride (NS) 1,000 ml @ 40 mls/hr Q24H IV Last administered on 01:17; Admin Dose 40 MLS/HR; Start 10/02/16 at 01:30 Procedures Procedures Conclusions 1. Normal left ventricular systolic function. Normal left ventricular cavity size. Normal left ventricular wall thickness. Ejection fraction is visually estimated at 65 %. Tissue Doppler/Mitral Doppler indices are consistent with impaired relaxation (Stage I diastolic dysfunction). 2. Normal appearance and function of the mitral valve with trace physiologic regurgitation. 3. No significant aortic stenosis or insufficiency. Aortic cusps appear mildly calcified. 4. Normal appearance of the tricuspid valve. Estimated peak PA systolic pressure 67 mmHg. There is mild tricuspid regurgitation. 5. Dilated IVC without respiratory collapse consistent with elevated right atrial pressure. Electronically Signed By: Reed Richey 03-Oct-2016 09:49:07 -0800 MAYRA JENSEN MD Oct 03, 2016 17:31
[2016-10-03] MEDS: LORAZEPAM 2 MG INJ IV PRN (22:36)
[2016-10-04] VITALS (10 sets, daily range): BP systolic 107–134; BP diastolic 59–69; PULSE 77–91; RESP 16–20
[2016-10-04] MEDS: IPRATROPIUM (NEB) 0.5 MG/2.5 ML AMP HHN SCH ×3 (01:46→14:01)
[2016-10-04] MEDS: LEVALBUTEROL (NEB) 0.63 MG/3 ML AMP HHN SCH ×3 (01:46→14:02)
[2016-10-04] MEDS: SOD CHLORIDE 0.9% 1,000 ML IV SCH (02:08)
--- NOTE | 2016-10-04 08:49 | CONS ---
Date/Time of Note Date/Time of Note DATE: 10/04/16 TIME: 08:47 Assessment/Plan Assessment/Plan Additional Assessment/Plan 61 yo Female with 1) Hyponatremia- Improving 2) Respiratory Failure 3) CHF 4) COPD 5) Metabolic Alkalosis, Hypochloremic 6) Hx of HTN 7) Possible PNA 8) Abnormal UA, Likely UTI with possible Urinary Retention Hyponatremia likely multifactorial in the setting of Chronic Lung Disease, CHF and Medication Rx. Improved to 131 TSH Normal, Cortisol Normal. Echo Reviewed BP Well Controlled. Repeat Chemistry in am Thank you for the opportunity to participate in the care of Ms Kulkarni Please do not hesitate to contact me if you have any questions or concerns. Consultation Date/Type/Reason Admit Date/Time Oct 01, 2016 at 01:02 Initial Consult Date 10/01/16 Type of Consultation: Nephrology Referring Provider: OLESYA OBANDO MD 24 HR Interval Summary Free Text/Dictation Pt is not on BIPAP Exam/Review of Systems Vital Signs Vitals Vital Signs Date Time Temp Pulse Resp B/P Pulse Ox O2 Delivery O2 Flow Rate FiO2 10/04/16 08:37 77 10/04/16 07:51 98.0 18 134/69 92 10/04/16 05:00 Nasal Cannula 3.0 10/02/16 23:16 40 Intake and Output 10/03/16 10/03/16 10/04/16 15:00 23:00 07:00 Intake Total 1400 ml 1140 ml Output Total 3400 ml 2100 ml Balance -2000 ml -960 ml Exam Constitutional: No distress ENMT: mucosa pink and moist Neck: No jvd Respiratory: diminished breath sounds, No labored breathing Cardiovascular: regular rate and rhythm, No edema Extremities: No edema Skin: No diaphoresis Results Result Diagram: 10/03/16 0550 10/03/16 0550 Medications Medications Current Medications Ondansetron HCl (Zofran Inj) 4 mg Q6H PRN IV NAUSEA AND/OR VOMITING; Start at 03:30 Acetaminophen (Tylenol Tab) 650 mg Q6H PRN PO PAIN AND OR ELEVATED TEMP; Start 10/01/16 at 03:30 Methylprednisolone Sodium Succinate (Solu-Medrol) 80 mg Q12 IV Last administered on 10/03/16t 20:50; Admin Dose 80 MG; Start 10/01/16 at 09:00 Amlodipine Besylate (Norvasc) 10 mg DAILY PO Last administered on 10/03/16 08: 27; Admin Dose 10 MG; Start 10/02/16 at 09:00 Clonazepam (Klonopin) 0.5 mg BID PRN PO AGITATION/ANXIETY; Start 10/01/16 at 14 :00 Docusate Sodium (Colace) 100 mg DAILY PO Last administered on 10/03/16 08:27; Admin Dose 100 MG; Start 10/02/16 at 09:00 Ergocalciferol (Drisdol) 50,000 unit Q7D PO Last administered on 10/01/16 17: 35; Admin Dose 50,000 UNIT; Start 10/01/16 at 14:00 Lubiprostone (Amitiza) 24 mcg BID PO Last administered on 10/03/16 20:48; Admin Dose 24 MCG; Start 10/01/16 at 21:00 Metoprolol Tartrate (Lopressor) 25 mg BID PO Last administered on 10/03/16 20: 53; Admin Dose 25 MG; Start 10/01/16 at 21:00 Salmeterol Xinafoate/ Fluticasone (Advair 250/50 Diskus) 1 inh BID INH Last administered on 10/03/16 20:49; Admin Dose 1 INH; Start 10/01/16 at 21:00 Haloperidol 5 mg 5 mg BID PO Last administered on 10/03/16 20:48; Admin Dose 5 MG; Start 10/01/16 at 21:00 Ceftriaxone Sodium (Rocephin) 50 ml @ 100 mls/hr Q24H IVPB Last administered on 10/03/16 14:20; Admin Dose 100 MLS/HR; Start 10/01/16 at 14:30 Lorazepam 0.5 mg 0.5 mg Q8H PRN IV AGITATION/ANXIETY Last administered on 22:36; Admin Dose 0.5 MG; Start 10/01/16 at 22:30 Sodium Chloride (NS) 1,000 ml @ 40 mls/hr Q24H IV Last administered on 02:08; Admin Dose 40 MLS/HR; Start 10/02/16 at 01:30 MAYRA JENSEN MD Oct 04, 2016 08:49
[2016-10-04] MEDS: METHYLPREDNISOLONE 125 MG INJ IV SCH (09:08)
[2016-10-04] MEDS: SALMETEROL/FLUTICASONE 250/50 INHA INH SCH (09:08)
[2016-10-04] MEDS: AMLODIPINE 10 MG TAB PO SCH (09:10)
[2016-10-04] MEDS: LUBIPROSTONE 24 MCG CAP PO SCH (09:10)
[2016-10-04] MEDS: DOCUSATE SODIUM 100 MG CAP PO SCH (09:10)
[2016-10-04] MEDS: METOPROLOL 25 MG TAB PO SCH (09:10)
[2016-10-04] MEDS: HALOPERIDOL 5 MG TAB PO SCH (09:10)
[2016-10-04 10:23] LABS: BASOPHILS % 0.3 % (0.0-2.0); HEMATOCRIT 42.9 % (37.0-47.0); HEMOGLOBIN 13.9 g/dl (12.0-16.0); LYMPHOCYTES # 0.5 10^3/ul (0.8-2.9); LYMPHOCYTES % 5.4 % (15.0-51.0); MEAN CORPUSCULAR HEMOGLOBIN 28.7 pg (29.0-33.0); MEAN CORPUSCULAR HGB CONC 32.5 g/dl (32.0-37.0); MEAN CORPUSCULAR VOLUME 88.2 fl (82.0-101.0); MEAN PLATELET VOLUME 6.4 fl (7.4-10.4); MONOCYTE # 0.9 10^3/ul (0.3-0.9); MONOCYTES % 9.3 % (0.0-11.0); NEUTROPHIL # 7.8 10^3/ul (1.6-7.5); PLATELET COUNT 421 10^3/UL (140-440); RED BLOOD COUNT 4.86 10^6/ul (4.20-5.40); RED CELL DISTRIBUTION WIDTH 17.1 % (11.5-14.5); UNCORRECTED WBC 9.2 10^3/ul (4.8-10.8); WHITE BLOOD COUNT 9.2 10^3/ul (4.8-10.8)
[2016-10-04 10:26] LABS: CONDITION 1; LH ANALYZER COMMENTS 1
[2016-10-04 10:39] LABS: POTASSIUM 3.6 mmol/L (3.5-5.1)
[2016-10-04 10:41] LABS: CREATININE 0.56 mg/dl (0.44-1.00)
--- NOTE | 2016-10-04 13:01 | CONS ---
Date/Time of Note Date/Time of Note DATE: 10/04/16 TIME: 13:00 Consult Date/Type/Reason Admit Date/Time Oct 01, 2016 at 01:02 Initial Consult Date 10/01/16 Type of Consultation: Pulmonary Ordering Provider: OLESYA OBANDO MD Subjective Patient less short of breath today appears stable hemodynamically no chest pain palpitations orthopnea or PND. Objective Vital Signs Date Time Temp Pulse Resp B/P Pulse Ox O2 Delivery O2 Flow Rate FiO2 10/04/16 12:11 91 10/04/16 12:00 98.0 19 119/59 98 10/04/16 09:47 3.0 10/04/16 09:23 Nasal Cannula 10/02/16 23:16 40 Intake and Output 10/03/16 10/03/16 10/04/16 15:00 23:00 07:00 Intake Total 1400 ml 1140 ml Output Total 3400 ml 2100 ml Balance -2000 ml -960 ml PHYSICAL EXAMINATION: GENERAL: Elderly-appearing lady, nc 02. VITAL SIGNS: As above NECK: Supple. No JVD or lymphadenopathy. CARDIAC: S1, S2. No added sounds or murmurs. CHEST: Diminished air entry bilaterally. ABDOMEN: Soft, nontender. No guarding or rebound. EXTREMITIES: No cyanosis, clubbing, edema. NEUROLOGIC: Grossly intact. No focal deficits. Results/Medications Result Diagram: 10/04/16 1015 10/04/16 1015 Results 24 hrs Laboratory Tests Test 10/04/16 10:15 Anion Gap 13 Basophils # 0.0 Basophils % 0.3 Blood Morphology Comment Blood Urea Nitrogen 22 H Calcium Level 9.0 Carbon Dioxide Level 38 H Chloride Level 85 L Creatinine 0.56 Eosinophils # 0.0 Eosinophils % 0.0 Glucose Level 124 Hematocrit 42.9 Hemoglobin 13.9 Lymphocytes # 0.5 L Lymphocytes % 5.4 L Mean Corpuscular Hemoglobin 28.7 L Mean Corpuscular Hemoglobin Concent 32.5 Mean Corpuscular Volume 88.2 Mean Platelet Volume 6.4 L Monocytes # 0.9 Monocytes % 9.3 Neutrophils # 7.8 H Neutrophils % 85.0 H Nucleated Red Blood Cells # 0.0 Nucleated Red Blood Cells % 0.0 Platelet Count 421 Potassium Level 3.6 Red Blood Count 4.86 Red Cell Distribution Width 17.1 H Sodium Level 132 L White Blood Count 9.2 Medications Current Medications Ondansetron HCl (Zofran Inj) 4 mg Q6H PRN IV NAUSEA AND/OR VOMITING; Start at 03:30 Acetaminophen (Tylenol Tab) 650 mg Q6H PRN PO PAIN AND OR ELEVATED TEMP; Start 10/01/16 at 03:30 Methylprednisolone Sodium Succinate (Solu-Medrol) 80 mg Q12 IV Last administered on 10/04/16 09:08; Admin Dose 80 MG; Start 10/01/16 at 09:00 Amlodipine Besylate (Norvasc) 10 mg DAILY PO Last administered on 10/04/16 09: 10; Admin Dose 10 MG; Start 10/02/16 at 09:00 Clonazepam (Klonopin) 0.5 mg BID PRN PO AGITATION/ANXIETY; Start 10/01/16 at 14 :00 Docusate Sodium (Colace) 100 mg DAILY PO Last administered on 10/04/16 09:10; Admin Dose 100 MG; Start 10/02/16 at 09:00 Ergocalciferol (Drisdol) 50,000 unit Q7D PO Last administered on 10/01/16 17: 35; Admin Dose 50,000 UNIT; Start 10/01/16 at 14:00 Lubiprostone (Amitiza) 24 mcg BID PO Last administered on 10/04/16 09:10; Admin Dose 24 MCG; Start 10/01/16 at 21:00 Metoprolol Tartrate (Lopressor) 25 mg BID PO Last administered on 10/04/16 09: 10; Admin Dose 25 MG; Start 10/01/16 at 21:00 Salmeterol Xinafoate/ Fluticasone (Advair 250/50 Diskus) 1 inh BID INH Last administered on 10/04/16 09:08; Admin Dose 1 INH; Start 10/01/16 at 21:00 Haloperidol 5 mg 5 mg BID PO Last administered on 10/04/16 09:10; Admin Dose 5 MG; Start 10/01/16 at 21:00 Ceftriaxone Sodium (Rocephin) 50 ml @ 100 mls/hr Q24H IVPB Last administered on 10/03/16 14:20; Admin Dose 100 MLS/HR; Start 10/01/16 at 14:30 Lorazepam 0.5 mg 0.5 mg Q8H PRN IV AGITATION/ANXIETY Last administered on 22:36; Admin Dose 0.5 MG; Start 10/01/16 at 22:30 Sodium Chloride (NS) 1,000 ml @ 40 mls/hr Q24H IV Last administered on 02:08; Admin Dose 40 MLS/HR; Start 10/02/16 at 01:30 Assessment/Plan Chief Complaint/Hosp Course IMPRESSION AND PLAN: 1. Acute on chronic hypercapnic respiratory failure, likely secondary to chronic obstructive pulmonary disease exacerbation and congestive heart failure. 2. Developmental delay. 3. Likely underlying interstitial edema. 4. Questionable diastolic dysfunction. 5. Possible aspiration syndrome The patient should have: 1. Gentle diuresis if tolerated. 2. Renal recommendations, correction of hyponatremia. Improved. 3. Bronchodilators and steroid taper. 4. Trial off noninvasive positive pressure ventilation 5. Speech therapy recommendations 6. Encourage out of bed Transfer to [place] pending Problems: MARIELA JEFFREY MD, [facility] Oct 04, 2016 13:01
[2016-10-04] MEDS: CEFTRIAXONE 1 GM/50 ML (PMX) 50 ML IVPB SCH (15:00)
--- NOTE | 2016-10-04 18:03 | DS ---
DATE OF ADMISSION: 10/01/2016 DATE OF DISCHARGE: 10/05/2016 CONSULTANTS: 1. Dr. Gardiner . 2. Dr. Guilherme Gonzalez. PROCEDURES: A 2D echocardiogram with ejection fraction of 65%, stage I diastolic dysfunction, mendel l appearance and function of mitral valve, no significant aortic stenosis or insufficiency. Dilated IVC without respiratory collapse consistent with elevated right atrial pressure. Estimated peak PA systolic pressure 67 mmHg. DISCHARGE DIAGNOSES: 1. Acute on chronic hypercapnic respiratory failure, likely secondary to chronic obstructive pulmon darlyn disease exacerbation and congestive heart failure. 2. Chronic obstructive pulmonary disease exacerbation. 3. Stage I diastolic dysfunction. 4. Developmental delay. 5. Altered mental status, likely secondary to medication due to benzodiazepine versus hypoxemia, im proved. 6. Essential hypertension. 7. Hypernatremia, status post IV fluid and diuresis. 8. Pulmonary hypertension, status post Lasix, improved. 9. Pneumonia, status post Rocephin. MEDICATIONS: 1. Tylenol. 2. Amlodipine. 3. Rocephin. 4. Klonopin. 5. Colace. 6. Vitamin D. 7. Lasix. 8. Haldol. 9. Atrovent. 10. Xopenex. 11. Ativan p.r.n. 12. Amitiza. 13. Solu-Medrol. 14. Metoprolol. 15. Zofran. 16. Advair. 17. Prednisone status post Solu-Medrol. Diet: Cardiac. Activity with physical therapy. LABS: Today, WBC 9.3, hemoglobin 13.9, hematocrit 42.9, platelets 421. Sodium 132, potassium 3.6, chloride 185, bicarbonate 38, BUN 22, creatinine 0.52, glucose 124, calcium 9.0. TSH 0.467, free T4 1.43, random cortisol 9.5. ALLERGIES: NO KNOWN DRUG ALLERGIES. HOSPITAL COURSE: This is a 61-year-old mentally challenged female with history of hypertension, LAPEL BASTER D, anxiety, vitamin D deficiency, questionable bipolar disease, who resides at assisted living who w as found to have shortness of breath and hypoxemia. Patient was transferred to [facility] Emergency Room and was found to be severely hypoxic with a saturation of 54%, blood pressure was fou nd to be stable, heart rate 104, respiration rate 24, temperature 98. Sodium 121. Patient was also found to be very altered; this may have been secondary to severe hyponatremia, hypochloremia, and h ypoxemia. The patient was placed on BiPAP and was transferred to telemetry floor, was seen and eval uated by nephrology, jet inspector. Was continued on BiPAP. The patient was found to be on great a mount of benzodiazepines, and antipsychotic medication. These medication doses were decreased, and p atient's oxygen saturation is starting to improve on BiPAP. Was placed on IV fluid and Lasix, and h er electrolytes started to improve significantly. The patient's mental status has been improving. The patient is awake, alert, has been able to tolerate oral intake. The patient's 2D echocardiogram showed normal ejection fraction, stage I diastolic dysfunction, and evidence of pulmonary hypertens ion with estimated PA systolic pressure of 67 mmHg. This was stated above. Patient was continued o n IV Lasix, which her breathing status has been improving significantly. At this time, the patient has been transitioned to oxygen via nasal cannula. She has been tolerating nasal cannula and has be en able to follow commands and tolerate her oral intake. At this time, the patient is medically sta ble to be transferred to [facility] for further evaluation and respiratory treatment. Regar ding her psychosis, she has been continued on her home medications. Her Haldol has been decreased t o 5 mg p.o. b.i.d. She has been placed on lorazepam p.r.n. for COPD. She has been continued on Adva ir, breathing treatment, and at this time, the patient has been on Solu-Medrol, which will be transi tioned to prednisone. Regarding her pneumonia, patient was placed on Rocephin, which we will contin ue for the next 7 days. For her hypertension, blood pressure is well controlled on Norvasc. At thi s time, the patient's mentation is at baseline, and she has been cleared as per nephrology and pulmo nology for transfer to [facility]. Dictated By: OLESYA OBANDO MD PN/NTS Conf#: [id number] DID#: [id number]
== END 2016-10-04 20:01 | DRG 193 ==
LOC: E/R 23:47 → MS4 10-01 01:02
PROVIDERS: ADMIT Internal Medicine; ATTEND Internal Medicine
DX: J18.9 Pneumonia, unspecified organism (principal); J96.22 Acute and chronic respiratory failure with hypercapnia; I50.31 Acute diastolic (congestive) heart failure; J44.1 Chronic obstructive pulmonary disease with (acute) exacerbation; E87.2 Acidosis; E87.1 Hypo-osmolality and hyponatremia; I27.2 Other secondary pulmonary hypertension; I50.9 Heart failure, unspecified; I10 Essential (primary) hypertension; R41.82 Altered mental status, unspecified; R62.50 Unspecified lack of expected normal physiological development in childhood
CPT/HCPCS: 36415; 36600; 71010; 80048; 80053; 81001; 81003; 82533; 82803; 83605; 83735; 83880; 83935; 84155; 84295; 84300; 84439; 84443; 84484; 85025; 85610; 85730; 87040; 87086; 92610; 93005; 93306; 94640; 94644; 94660; 94664; 96374; J1940; J0696; J1100; J1956; J2060; J2930; J7030